=== PATIENT | female | born 1985 | race Caucasian/White ===

== ENCOUNTER 2016-04-24 12:51 | Outpatient (CLI) | payer MEDICAID ==
--- NOTE | 2016-04-24 13:37 | Non Stress Test Report ---
Non Stress Test Datetime Report Generated by CPN: 04/24/2016 13:36 DEMOGRAPHIC EGA NST: 34.4 INDICATION Indication for Study: Diabetes Mellitus Indication for Study (NST) Other: GDM MONITORING Monitor Explained: Monitor Explained; Test Explained; Patient Verbalized Understanding Time on Monitor: 04/24/2016 13:00 Time off Monitor: 04/24/2016 13:35 NST Duration: 35 NST INTERVENTIONS NST Interventions: PO Hydration; Reposition Patient Physician Notified NST: A. Emmel CNM BABY A: [id number] BABY A Movement : Present Contraction Frequency : rare FHR Baseline : 120 Accelerations : 15X15 Decelerations : None Variability : Moderate 6-25bpm NST Review: Meets Criteria for Reactive NST NST Review and Verified By : Stormy Jung RN NST Results: Reactive NST REPORT Report Trigger: Send Report
== END 2016-04-24 13:35 | disposition home or self-care (01) ==
LOC: LC 12:51
PROVIDERS: ATTEND Obstetrics & Gynecology
PROC: 4A1HXCZ Monitoring of Products of Conception, Cardiac Rate, External Approach (ICD-10-PCS; principal; 2016-04-24)
DX: O24.419 Gestational diabetes mellitus in pregnancy, unspecified control (principal); Z3A.34 34 weeks gestation of pregnancy
CPT/HCPCS: 59025

== ENCOUNTER 2016-05-26 07:29 | Inpatient (IN) | payer MEDICAID ==
[2016-05-26] MEDS ORDERED: RINGERS SOLUTION,LACTATED 1,000 ML IV PRN (07:57)
[2016-05-26] MEDS ORDERED: OXYTOCIN/NORMAL SALINE 1,000 ML IV PRN (07:57)
[2016-05-26] MEDS ORDERED: RINGERS SOLUTION,LACTATED 300 ML IV ONE (07:57)
--- NOTE | 2016-05-26 08:00 | L&D Flow Sheet ---
LD Flowsheet Datetime Report Generated by CPN: 05/26/2016 08:00 Datetime: 05/26/2016 07:48 Patient Care Procedures: Consents Signed (Cecilia Talib, RN) Datetime: 05/26/2016 07:47 Vital Signs NBP Sys/Justina/Mean (mmHg): 125 (QS system process) : 76 (QS system process) : 94 (QS system process) Pulse: 96 (QS system process) Uterine Activity Monitor Interventions for UA: [place] Adjusted (Ceiclia Talib, RN) Datetime: 05/26/2016 07:45 Patient Position/Activity: Right Tilt; Low Fowlers (Cecilia Mayers RN)
[2016-05-26 08:29] LABS: APPEARANCE,URINE SLIGHTLY-CLOUDY; BILIRUBIN,URINE NEGATIVE (NEGATIVE); GLUCOSE, URINE NEGATIVE (NEGATIVE); KETONES,URINE NEGATIVE (NEGATIVE); LEUKOCYTE ESTERASE,URINE NEGATIVE (NEGATIVE); NITRITE,URINE NEGATIVE (NEGATIVE); PROTEIN,URINE NEGATIVE (NEGATIVE); URINE SPECIFIC GRAVITY 1.002; UROBILINOGEN,URINE NEGATIVE mg/dL (<2.0)
[2016-05-26 08:42] LABS: URINE BARBITURATES SCREEN NEGATIVE; URINE METHADONE SCREEN NEGATIVE; URINE OPIATES LOW NEGATIVE; URINE PHENCYCLIDINE SCREEN NEGATIVE
[2016-05-26 09:00] LABS: ABSOLUTE LYMPHOCYTES (AUTO) 2.2 10^3/uL (0.5-4.7); ABSOLUTE MONOCYTES (AUTO) 0.7 10^3/uL (0.1-1.4); ABSOLUTE NEUT (AUTO) 7.2 10^3/uL (1.7-8.2); BASOPHILS % (AUTO) 0.4 % (0-2); EOSINOPHILS % (AUTO) 0.3 % (0-6); HEMATOCRIT 29.3 % (36.0-47.0); HEMOGLOBIN 9.7 g/dL (12.0-15.5); HGB HCT DIFFERENCE -0.2; LYMPHOCYTES % (AUTO) 21.2 % (13-45); MEAN CORPUSCULAR HEMOGLOBIN 27.1 pg (27.0-33.4); MEAN CORPUSCULAR HGB CONC 33.2 g/dL (32.0-36.0); MEAN CORPUSCULAR VOLUME 82 fl (80-97); MONOCYTES % (AUTO) 6.9 % (3-13); RED BLOOD COUNT 3.58 10^6/uL (3.72-5.28); RED CELL DISTRIBUTION WIDTH 14.5 % (11.5-14.0); SEGMENTED NEUTROPHILS % (AUTO) 71.2 % (42-78); WHITE BLOOD COUNT 10.2 10^3/uL (4.0-10.5)
[2016-05-26] MEDS ORDERED: VANCOMYCIN HCL INJ 1000 MG VIAL ONE (09:03)
[2016-05-26] MEDS ORDERED: OXYTOCIN/NORMAL SALINE 20 UNIT/1,000 ML RTUINJ ONE (09:37)
--- NOTE | 2016-05-26 10:00 | L&D Flow Sheet ---
LD Flowsheet Datetime Report Generated by CPN: 05/26/2016 10:00 Datetime: 05/26/2016 09:47 NBP Sys/Justina/Mean (mmHg): 125 (QS system process) : 71 (QS system process) : 93 (QS system process) Pulse: 86 (QS system process) LaborFlag: Antepartum (QS system process) Datetime: 05/26/2016 09:45 Pitocin (milliunit): Pitocin Started (milliunits) @ 2; Pitocin 20 Units in 1000ml NS (Cecilia Talib, RN) Datetime: 05/26/2016 09:32 Medication Comments: Vancomycin 1 gram IV per order (Cecilia Talib, RN) Datetime: 05/26/2016 09:17 NBP Sys/Justina/Mean (mmHg): 112 (QS system process) : 66 (QS system process) : 83 (QS system process) Pulse: 87 (QS system process) LaborFlag: Antepartum (QS system process) Datetime: 05/26/2016 09:02 NBP Sys/Justina/Mean (mmHg): 122 (QS system process) : 73 (QS system process) : 91 (QS system process) Pulse: 83 (QS system process) LaborFlag: Antepartum (QS system process) Datetime: 05/26/2016 09:00 Communication Comments: order received for Vancomycin 1G IV q12 hours until delivery (Cecilia Mayers, RN) Datetime: 05/26/2016 08:47 NBP Sys/Justina/Mean (mmHg): 115 (QS system process) : 76 (QS system process) : 92 (QS system process) Pulse: 87 (QS system process) LaborFlag: Antepartum (QS system process) Datetime: 05/26/2016 08:32 NBP Sys/Justina/Mean (mmHg): 121 (QS system process) : 82 (QS system process) : 94 (QS system process) Pulse: 81 (QS system process) LaborFlag: Antepartum (QS system process) Datetime: 05/26/2016 08:24 Dilatation (cm): 3.0 (Cecilia Mayers RN) Effacement (%): 60 (Cecilia Mayers RN) Station: -3 (Cecilia Mayers RN) Exam by: Butch Mayers RN (Cecilia Mayers RN) Vaginal Bleeding: None (Cecilia Mayers RN) Cervix, Consistency: Soft (Cecilia Mayesr RN) Cervix, Position: Midposition (Cecilia Mayers RN) Datetime: 05/26/2016 08:17 NBP Sys/Justina/Mean (mmHg): 124 (QS system process) : 80 (QS system process) : 96 (QS system process) Pulse: 86 (QS system process) LaborFlag: Antepartum (QS system process) Datetime: 05/26/2016 08:16 NBP Sys/Justina/Mean (mmHg): 126 (QS system process) : 81 (QS system process) : 98 (QS system process) Pulse: 90 (QS system process) LaborFlag: Antepartum (QS system process) Datetime: 05/26/2016 08:12 Monitor Interventions for UA: [place] Adjusted (Cecilia Mayers RN) Monitor Mode: External US (Cecilia Mayers RN) Pain Scale: 0 (Cecilia Mayers RN) Pain Presence: None/Denies (Cecilia Mayers RN) Pain Type: N/A (Cecilia Mayers RN) Pain Goal: 1 (Cecilia Mayers RN) Pain Relief Measures: Comfort Measures (Cecilia Mayers RN) Vaginal Bleeding: None (Cecilia Mayers RN) Level of Consciousness: Fully Conscious (Cecilia Mayers RN) DTR's/Clonus: DTRs 2+; No Clonus (Cecilia Mayers RN) Headache: Denies (Cecilia Talib, RN) Breath Sounds, Left: Clear and Equal (Cecilia Mayers RN) Breath Sounds, Right: Clear and Equal (Cecilia Mayers RN) Nausea/Vomiting: Hx of Nausea/Vomiting (Cecilia Mayers RN) RUQ Epigastric Pain: Denies (Cecilia Mayers RN) IV/Blood Work: IV Infusing per Order (Cecilia Mayers RN) Oxygen Method: Room Air (Cecilia Mayers, RN) Comfort Measures: Family Support (Cecilia Mayers RN) I/O Interventions: Clear Liquids Given (Cecilia Mayers RN) Provider Reviewed Strip: Yes (Cecilia Mayers RN) Instructional Method: Verbal (Cecilia Mayers RN) Plan of Care: Plan of Care Discussed (Cecilia Mayers RN) Unit Routine: [place] to Room; [place]; Bed; Visiting Policy; Waiting Areas (Cecilia Mayers RN) Labor/Induction: Labor Stages; Induction (Cecilia Mayers RN) Related: Common Discomforts of (Cecilia Mayers RN) LaborFlag: Antepartum (QS system process) Datetime: 05/26/2016 08:05 IV/Blood Work: IV Started; IV Bolus Started (Cecilia Mayers RN)
--- NOTE | 2016-05-26 12:00 | L&D Flow Sheet ---
LD Flowsheet Datetime Report Generated by CPN: 05/26/2016 12:00 Datetime: 05/26/2016 11:48 Communication Comments: Andrea Perla CNM notified of non-reactive strip, patient states she only ate "a handful of cheerios" this AM, blood sugar before breakfast was 66. Order received for popsicle (Cecilia Talib, RN) Datetime: 05/26/2016 11:47 NBP Sys/Justina/Mean (mmHg): 122 (QS system process) : 75 (QS system process) : 94 (QS system process) Pulse: 90 (QS system process) LaborFlag: Antepartum (QS system process) Datetime: 05/26/2016 11:45 Pitocin (milliunit): Pitocin Remains (milliunits) @ (Annotations: 10) (Cecilia Mayers, RN) Datetime: 05/26/2016 11:32 NBP Sys/Justina/Mean (mmHg): 123 (QS system process) : 77 (QS system process) : 94 (QS system process) Pulse: 89 (QS system process) Monitor Interventions for UA: [place] Adjusted (Cecilia Mayers RN) LaborFlag: Antepartum (QS system process) Datetime: 05/26/2016 11:31 Monitor Interventions for FHR: Ultrasound Adjusted (Cecilia Mayers RN) Patient Position/Activity: High Fowlers (Cecilia Mayers, RN) Datetime: 05/26/2016 11:30 Monitor Mode: External; Palpation (Cecilia Mayers RN) Frequency (min): irritability (Cecilia Mayers, ELIF) Quality: Mild (Cecilia Mayers, ELIF) Duration Criteria: Less than Two 120 Second Contractions (Cecilia Mayers, ELIF) Pattern: Normal: <= 5 Contractions in 10 Minutes (Cecilia Mayers, RN) Resting Tone (Palpate): Relaxed (Cecilia Mayers, RN) Monitor Mode: External US (Cecilia Mayers, RN) FHR Baseline Rate : 125 (Cecilia Mayers, RN) FHR Baseline Changes: No Baseline Change (Cecilia Mayers, RN) Variability: Moderate 6-25 bpm (Cecilia Mayers, RN) Accelerations: 15X15 (Cecilia Mayers, RN) Decelerations: None (Cecilia Mayers, RN) Pitocin (milliunit): Pitocin Increased to (milliunits) @ (Annotations: 10) (Cecilia Mayers, RN) Datetime: 05/26/2016 11:17 NBP Sys/Justina/Mean (mmHg): 126 (QS system process) : 74 (QS system process) : 96 (QS system process) Pulse: 82 (QS system process) LaborFlag: Antepartum (QS system process) Datetime: 05/26/2016 11:15 Monitor Mode: External; Palpation (Cecilia Mayers RN) Frequency (min): irritability (Cecilia Mayers RN) Quality: Mild (Cecilia Mayers RN) Duration Criteria: Less than Two 120 Second Contractions (Cecilia Mayers RN) Pattern: Normal: <= 5 Contractions in 10 Minutes (Cecilia Mayers RN) Resting Tone (Palpate): Relaxed (Cecilia Mayers, ELIF) Monitor Mode: External US (Cecilia Mayers RN) FHR Baseline Rate : 120 (Cecilia Mayers RN) FHR Baseline Changes: No Baseline Change (Cecilia Mayers RN) Variability: Moderate 6-25 bpm (Cecilia Mayers RN) Accelerations: 15X15 (Cecilia Mayers, RN) Decelerations: None (Cecilia Mayers, ELIF) Pitocin (milliunit): Pitocin Remains (milliunits) @ (Annotations: 8) (Cecilia Mayers RN) Datetime: 05/26/2016 11:02 NBP Sys/Justina/Mean (mmHg): 122 (QS system process) : 74 (QS system process) : 93 (QS system process) Pulse: 82 (QS system process) LaborFlag: Antepartum (QS system process) Datetime: 05/26/2016 11:00 Monitor Mode: External; Palpation (Cecilia Mayers RN) Resting Tone (Palpate): Relaxed (Cecilia Mayers RN) Contraction Comments: unable to determine due to patient position, RN at bedside adjusting monitor (Cecilia Mayers RN) Monitor Mode: External US (Cecilia Mayers RN) FHR Baseline Rate : 120 (Cecilia Mayers RN) FHR Baseline Changes: No Baseline Change (Cecilia Mayers RN) Variability: Moderate 6-25 bpm (Cecilia Mayers RN) Accelerations: None (Cecilia Mayers RN) Decelerations: None (Cecilia Mayers RN) Pitocin (milliunit): Pitocin Increased to (milliunits) @ 8 (Cecilia Mayers RN) Datetime: 05/26/2016 10:47 NBP Sys/Justina/Mean (mmHg): 118 (QS system process) : 66 (QS system process) : 87 (QS system process) Pulse: 78 (QS system process) LaborFlag: Antepartum (QS system process) Datetime: 05/26/2016 10:45 Monitor Mode: External; Palpation (Cecilia Mayers RN) Resting Tone (Palpate): Relaxed (Cecilia Mayers RN) Contraction Comments: unable to determine due to patient movement, RN at bedside adjusting monitor (Cecilia Mayers RN) Monitor Mode: External US (Cecilia Mayers RN) FHR Baseline Rate : 120 (Cecilia Mayers RN) FHR Baseline Changes: No Baseline Change (Cecilia Mayers RN) Variability: Moderate 6-25 bpm (Cecilia Mayers RN) Accelerations: 15X15 (Cecilia Mayers RN) Decelerations: None (Cecilia Mayers RN) Pitocin (milliunit): Pitocin Increased to (milliunits) @ (Annotations: 6) (Cecilia Mayers RN) Datetime: 05/26/2016 10:35 Monitor Interventions for FHR: Ultrasound Adjusted (Cecilia Mayres RN) Communication: RN at Bedside (Cecilia Mayers RN) Datetime: 05/26/2016 10:32 NBP Sys/Justina/Mean (mmHg): 131 (QS system process) : 80 (QS system process) : 100 (QS system process) Pulse: 86 (QS system process) LaborFlag: Antepartum (QS system process) Datetime: 05/26/2016 10:30 Monitor Mode: External; Palpation (Cecilia Mayers RN) Frequency (min): 2.5-3 (Cecilia Mayers RN) Quality: Mild (Cecilia Mayers RN) Duration (sec): 40-70 (Cecilia Mayers RN) Duration Criteria: Less than Two 120 Second Contractions (Cecilia Talib, RN) Pattern: Normal: <= 5 Contractions in 10 Minutes (Cecilia Mayers RN) Resting Tone (Palpate): Relaxed (Cecilia Mayers RN) Monitor Mode: External US (Ceciila Mayers RN) FHR Baseline Rate : 125 (Cecilia Mayers RN) FHR Baseline Changes: No Baseline Change (Cecilia Mayers RN) Variability: Moderate 6-25 bpm (Cecilia Mayers RN) Accelerations: 15X15 (Cecilia Mayers RN) Decelerations: None (Cecilia Mayers RN) Pitocin (milliunit): Pitocin Remains (milliunits) @ (Annotations: 4) (Cecilia Mayers RN) Datetime: 05/26/2016 10:17 NBP Sys/Justina/Mean (mmHg): 117 (QS system process) : 76 (QS system process) : 92 (QS system process) Pulse: 92 (QS system process) LaborFlag: Antepartum (QS system process) Datetime: 05/26/2016 10:15 Monitor Mode: External; Palpation (Cecilia Mayers RN) Frequency (min): 2-2.5 (Cecilia Mayers RN) Quality: Mild (Cecilia Mayers RN) Duration (sec): 40-60 (Cecilia Mayers RN) Duration Criteria: Less than Two 120 Second Contractions (Cecilia Mayers RN) Pattern: Normal: <= 5 Contractions in 10 Minutes (Cecilia Mayers RN) Resting Tone (Palpate): Relaxed (Cecilia Mayers RN) Monitor Mode: External US (Cecilia Mayers RN) FHR Baseline Rate : 125 (Cecilia Mayers RN) FHR Baseline Changes: No Baseline Change (Cecilia Mayers RN) Variability: Moderate 6-25 bpm (Cecilia Mayers RN) Accelerations: 15X15 (Cecilia Mayers RN) Decelerations: None (Cecilia Mayers RN) Pitocin (milliunit): Pitocin Remains (milliunits) @ (Annotations: 4) (Cecilia Mayers RN) Datetime: 05/26/2016 10:02 NBP Sys/Justina/Mean (mmHg): 122 (QS system process) : 71 (QS system process) : 91 (QS system process) Pulse: 83 (QS system process) LaborFlag: Antepartum (QS system process) Datetime: 05/26/2016 10:00 Monitor Mode: External; Palpation (Cecilia Mayers RN) Frequency (min): x1 (Cecilia Mayers RN) Quality: Mild (Cecilia Mayers RN) Duration (sec): 60 (Cecilia Mayers RN) Duration Criteria: Less than Two 120 Second Contractions (Cecilia Mayers RN) Pattern: Normal: <= 5 Contractions in 10 Minutes (Cecilia Mayers RN) Resting Tone (Palpate): Relaxed (Cecilia Mayers RN) Monitor Mode: External US (Cecilia Mayers RN) FHR Baseline Rate : 125 (Cecilia Mayers RN) FHR Baseline Changes: No Baseline Change (Cecilia Mayers RN) Variability: Moderate 6-25 bpm (Cecilia Mayers RN) Accelerations: 15X15 (Cecilia Mayers RN) Decelerations: None (Cecilia Mayers RN) Pitocin (milliunit): Pitocin Increased to (milliunits) @ 4 (Cecilia Mayers RN)
--- NOTE | 2016-05-26 12:10 | L&D Progress Notes ---
PROGRESS NOTES Datetime Report Generated by CPN: 05/26/2016 12:09 PROGRESS NOTE Procedures: Sterile Vag Exam Plan: Continue Present Management Vital Signs : Reviewed; Within Normal Limits Comment: SVE 2/60/ballotable-HIGH. Will delay trying to AROM. VAGINAL EXAM Dilatation: 2 Dilatation: 2 Effacement: 60 Effacement: 60 Station: -3 MEMBRANES Membranes: Intact Membranes: Intact FETUS A FHR - Baseline: 120 Monitoring: External US Variability: Moderate 6-25bpm FHR Category: Category I : 39.1 Presentation: Vertex SIGNATURE SIGNATURE: [id number] SIGNATURE: [id number] Assignment: Ella Zendejas MD Signature: with User ID: [email or web address] : with User ID: Jim : I personally evaluated and examined the patient in conjunction with the MLP and agree with the assessment, treatment plan and disposition. : I personally evaluated and examined the patient in conjunction with the MLP and agree with the assessment, treatment plan and disposition.
--- NOTE | 2016-05-26 14:01 | L&D Flow Sheet ---
LD Flowsheet Datetime Report Generated by CPN: 05/26/2016 14:00 Datetime: 05/26/2016 13:59 Patient Care Comments: rocking chair (Cecilia Talib, RN) Datetime: 05/26/2016 13:47 NBP Sys/Justina/Mean (mmHg): 129 (QS system process) : 86 (QS system process) : 102 (QS system process) Pulse: 99 (QS system process) LaborFlag: Antepartum (QS system process) Datetime: 05/26/2016 13:45 Monitor Mode: External; Palpation (Cecilia Mayers, ELIF) Frequency (min): 2-3.5 (Cecilia Mayers, ELIF) Quality: Mild (Cecilia Mayers, ELIF) Duration (sec): 40-70 (Cecilia Mayers, ELIF) Duration Criteria: Less than Two 120 Second Contractions (Cecilia Mayers, ELIF) Pattern: Normal: <= 5 Contractions in 10 Minutes (Cecilia Mayers, RN) Resting Tone (Palpate): Relaxed (Cecilia Mayers, ELIF) Monitor Mode: External US (Cecilia Mayers, ELIF) FHR Baseline Rate : 115 (Cecilia Mayers, RN) FHR Baseline Changes: No Baseline Change (Cecilia Mayers, ELIF) Variability: Moderate 6-25 bpm (Cecilia Mayers, RN) Accelerations: None (Cecilia Mayers, RN) Decelerations: None (Cecilia Mayers, ELIF) Pitocin (milliunit): Pitocin Remains (milliunits) @ (Annotations: 20) (Cecilia Mayers, ELIF) Datetime: 05/26/2016 13:32 NBP Sys/Justina/Mean (mmHg): 130 (QS system process) : 80 (QS system process) : 96 (QS system process) Pulse: 96 (QS system process) Temperature (F): 98.1 (Cecilia Mayers RN) Temperature (C): 36.7 (QS system process) LaborFlag: Antepartum (QS system process) Datetime: 05/26/2016 13:30 Monitor Mode: External; Palpation (Cecilia Mayers RN) Frequency (min): 2-3 (Cecilia Mayers RN) Quality: Mild (Cecilia Mayers RN) Duration (sec): 50-70 (Cecilia Mayers RN) Duration Criteria: Less than Two 120 Second Contractions (Cecilia Mayers RN) Pattern: Normal: <= 5 Contractions in 10 Minutes (Cecilia Mayers RN) Resting Tone (Palpate): Relaxed (Cecilia Mayers RN) Monitor Mode: External US (Cecilia Mayers RN) FHR Baseline Rate : 120 (Cecilia Mayers RN) FHR Baseline Changes: No Baseline Change (Cecilia Mayers RN) Variability: Moderate 6-25 bpm (Cecilia Mayers RN) Accelerations: 15X15 (Cecilia Mayers RN) Decelerations: None (Cecilia Mayers RN) Pitocin (milliunit): Pitocin Increased to (milliunits) @ 20 (Cecilia Mayers RN) Datetime: 05/26/2016 13:17 NBP Sys/Justina/Mean (mmHg): 130 (QS system process) : 78 (QS system process) : 98 (QS system process) Pulse: 90 (QS system process) LaborFlag: Antepartum (QS system process) Datetime: 05/26/2016 13:15 Monitor Mode: External; Palpation (Cecilia Mayers RN) Frequency (min): 3-3.5 (Cecilia Mayers RN) Quality: Mild (Cecilia Mayers RN) Duration (sec): 60-70 (Cecilia Mayers RN) Duration Criteria: Less than Two 120 Second Contractions (Cecilia Mayers RN) Pattern: Normal: <= 5 Contractions in 10 Minutes (Cecilia Mayers RN) Resting Tone (Palpate): Relaxed (Cecilia Mayers RN) Monitor Mode: External US (Cecilia Mayers RN) FHR Baseline Rate : 115 (Cecilia Mayers RN) FHR Baseline Changes: No Baseline Change (Cecilia Mayers RN) Variability: Moderate 6-25 bpm (Cecilia Mayers RN) Accelerations: 15X15 (Cecilia Mayers RN) Decelerations: None (Cecilia Mayers RN) Pitocin (milliunit): Pitocin Increased to (milliunits) @ (Annotations: 18) (Cecilia Mayers RN) Datetime: 05/26/2016 13:12 Monitor Interventions for UA: [place] Adjusted (Cecilia Talib, RN) Monitor Interventions for FHR: Ultrasound Adjusted (Cecilia Talib, RN) Datetime: 05/26/2016 13:11 Patient Position/Activity: Right Tilt; Semi-Fowlers (Cecilia Talib, RN) Datetime: 05/26/2016 13:07 I/O Interventions: Up to BR (Cecilia Talib, RN) Datetime: 05/26/2016 13:03 NBP Sys/Justina/Mean (mmHg): 122 (QS system process) : 81 (QS system process) : 98 (QS system process) Pulse: 86 (QS system process) LaborFlag: Antepartum (QS system process) Datetime: 05/26/2016 13:00 Monitor Mode: External; Palpation (Cecilia Mayers RN) Frequency (min): 2-3 (Cecilia Mayers RN) Quality: Mild (Cecilia Mayers RN) Duration (sec): 50-90 (Cecilia Mayers RN) Duration Criteria: Less than Two 120 Second Contractions (Cecilia Mayers RN) Pattern: Normal: <= 5 Contractions in 10 Minutes (Cecilia Mayers RN) Resting Tone (Palpate): Relaxed (Cecilia Mayers RN) Monitor Mode: External US (Cecilia Mayers RN) FHR Baseline Rate : 115 (Cecilia Mayers RN) FHR Baseline Changes: No Baseline Change (Cecilia Mayers RN) Variability: Moderate 6-25 bpm (Cecilia Mayers RN) Accelerations: 15X15 (Cecilia Mayers RN) Decelerations: None (Cecilia Mayers RN) Pitocin (milliunit): Pitocin Remains (milliunits) @ (Annotations: 16) (Cecilia Mayers RN) Datetime: 05/26/2016 12:48 NBP Sys/Justina/Mean (mmHg): 127 (QS system process) : 82 (QS system process) : 99 (QS system process) Pulse: 85 (QS system process) LaborFlag: Antepartum (QS system process) Datetime: 05/26/2016 12:45 Monitor Mode: External; Palpation (Cecilia Mayers RN) Frequency (min): 2.5-3.5 (Cecilia Mayers RN) Quality: Mild (Cecilia Mayers RN) Duration (sec): 70-110 (Cecilia Mayers RN) Duration Criteria: Less than Two 120 Second Contractions (Cecilia Mayers RN) Pattern: Normal: <= 5 Contractions in 10 Minutes (Cecilia Mayers RN) Resting Tone (Palpate): Relaxed (Cecilia Mayers RN) Monitor Mode: External US (Cecilia Mayers RN) FHR Baseline Rate : 120 (Cecilia Mayers RN) FHR Baseline Changes: No Baseline Change (Cecilia Mayers RN) Variability: Moderate 6-25 bpm (Cecilia Mayers RN) Accelerations: 15X15 (Cecilia Mayers RN) Decelerations: None (Cecilia Maeyrs RN) Pitocin (milliunit): Pitocin Increased to (milliunits) @ (Annotations: 16) (Cecilia Mayers RN) Datetime: 05/26/2016 12:33 NBP Sys/Justina/Mean (mmHg): 128 (QS system process) : 80 (QS system process) : 99 (QS system process) Pulse: 82 (QS system process) LaborFlag: Antepartum (QS system process) Datetime: 05/26/2016 12:30 Monitor Mode: External; Palpation (Cecilia Mayers RN) Frequency (min): 2.5-3 (Cecilia Mayers RN) Quality: Mild (Cecilia Mayers RN) Duration (sec): 70-90 (Cecilia Mayers RN) Duration Criteria: Less than Two 120 Second Contractions (Cecilia Mayers RN) Pattern: Normal: <= 5 Contractions in 10 Minutes (Cecilia Mayers RN) Resting Tone (Palpate): Relaxed (Cecilia Mayers RN) Monitor Mode: External US (Cecilia Mayers RN) FHR Baseline Rate : 120 (Cecilia Mayers RN) FHR Baseline Changes: No Baseline Change (Cecilia Mayers RN) Variability: Moderate 6-25 bpm (Cecilia Mayers RN) Accelerations: 15X15 (Cecilia Mayers RN) Decelerations: None (Cecilia Mayers RN) Pitocin (milliunit): Pitocin Remains (milliunits) @ (Annotations: 14) (Cecilia Mayers RN) Datetime: 05/26/2016 12:17 NBP Sys/Justina/Mean (mmHg): 132 (QS system process) : 75 (QS system process) : 97 (QS system process) Pulse: 87 (QS system process) LaborFlag: Antepartum (QS system process) Datetime: 05/26/2016 12:15 Monitor Mode: External; Palpation (Cecilia Mayers RN) Frequency (min): 2-3 (Cecilia Mayers RN) Quality: Mild (Cecilia Mayers RN) Duration (sec): 40-70 (Cecilia Mayers RN) Duration Criteria: Less than Two 120 Second Contractions (Cecilia Mayers RN) Pattern: Normal: <= 5 Contractions in 10 Minutes (Cecilia Mayers RN) Resting Tone (Palpate): Relaxed (Cecilia Mayers RN) Monitor Mode: External US (Cecilia Mayers RN) FHR Baseline Rate : 120 (Cecilia Mayers RN) FHR Baseline Changes: No Baseline Change (Cecilia Mayers RN) Variability: Moderate 6-25 bpm (Cecilia Mayers RN) Accelerations: 15X15 (Cecilia Mayers RN) Decelerations: None (Cecilia Mayers RN) Pitocin (milliunit): Pitocin Increased to (milliunits) @ (Annotations: 14) (Cecilia Mayers RN) Datetime: 05/26/2016 12:05 Dilatation (cm): 2.0 (Cecilia Mayers RN) Effacement (%): 60 (Cecilia Mayers RN) Exam by: Butch Mayers RN (Cecilia Mayers RN) Vaginal Exam Comments: ballotable (Cecilia Mayers RN) Datetime: 05/26/2016 12:02 NBP Sys/Justina/Mean (mmHg): 124 (QS system process) : 74 (QS system process) : 94 (QS system process) Pulse: 85 (QS system process) LaborFlag: Antepartum (QS system process) Datetime: 05/26/2016 12:00 Monitor Mode: External; Palpation (Cecilia Mayers RN) Frequency (min): 2.5-6 (Cecilia Mayers RN) Quality: Mild (Cecilia Mayers RN) Duration (sec): 40-60 (Cecilia Mayers RN) Duration Criteria: Less than Two 120 Second Contractions (Cecilia Mayers RN) Pattern: Normal: <= 5 Contractions in 10 Minutes (Cecilia Mayers RN) Resting Tone (Palpate): Relaxed (Cecilia Mayers RN) Monitor Mode: External US (Cecilia Mayers RN) FHR Baseline Rate : 120 (Cecilia Mayers RN) FHR Baseline Changes: No Baseline Change (Cecilia Mayers RN) Variability: Moderate 6-25 bpm (Cecilia Mayers RN) Accelerations: 15X15 (Cecilia Mayers RN) Decelerations: None (Cecilia Mayers RN) Pitocin (milliunit): Pitocin Increased to (milliunits) @ (Annotations: 12) (Cecilia Mayers RN)
--- NOTE | 2016-05-26 16:01 | L&D Flow Sheet ---
LD Flowsheet Datetime Report Generated by CPN: 05/26/2016 16:00 Datetime: 05/26/2016 15:48 NBP Sys/Justina/Mean (mmHg): 123 (QS system process) : 72 (QS system process) : 91 (QS system process) Pulse: 93 (QS system process) LaborFlag: Antepartum (QS system process) Datetime: 05/26/2016 15:45 Monitor Mode: External; Palpation (Cecilia Mayers RN) Frequency (min): 2-3 (Cecilia Mayers RN) Quality: Mild (Cecilia Mayers RN) Duration (sec): 50-60 (Cecilia Mayers RN) Duration Criteria: Less than Two 120 Second Contractions (Cecilia Mayers RN) Pattern: Normal: <= 5 Contractions in 10 Minutes (Cecilia Mayers RN) Resting Tone (Palpate): Relaxed (Cecilia Mayers RN) Monitor Mode: External US (Cecilia Mayers RN) FHR Baseline Rate : 115 (Cecilia Mayers RN) FHR Baseline Changes: No Baseline Change (Cecilia Mayers RN) Variability: Moderate 6-25 bpm (Cecilia Mayers RN) Accelerations: 15X15 (Cecilia Mayers RN) Decelerations: None (Cecilia Mayers RN) Pitocin (milliunit): Pitocin Remains (milliunits) @ (Annotations: 20) (Cecilia Mayers RN) Datetime: 05/26/2016 15:32 NBP Sys/Justina/Mean (mmHg): 118 (QS system process) : 74 (QS system process) : 91 (QS system process) Pulse: 93 (QS system process) LaborFlag: Antepartum (QS system process) Datetime: 05/26/2016 15:30 Monitor Mode: External; Palpation (Cecilia Mayers RN) Frequency (min): 2-3 (Cecilia Mayers RN) Quality: Mild (Cecilia Mayers RN) Duration (sec): 40-50 (Cecilia Mayers RN) Duration Criteria: Less than Two 120 Second Contractions (Cecilia Mayers RN) Pattern: Normal: <= 5 Contractions in 10 Minutes (Cecilia Mayers RN) Resting Tone (Palpate): Relaxed (Cecilia Mayers RN) Monitor Mode: External US (Cecilia Mayers RN) FHR Baseline Rate : 115 (Cecilia Mayers RN) FHR Baseline Changes: No Baseline Change (Cecilia Mayers RN) Variability: Moderate 6-25 bpm (Cecilia Mayers RN) Accelerations: 15X15 (Cecilia Mayers RN) Decelerations: None (Cecilia Mayers RN) Pitocin (milliunit): Pitocin Remains (milliunits) @ (Annotations: 20) (Cecilia Mayers RN) Datetime: 05/26/2016 15:18 NBP Sys/Justina/Mean (mmHg): 119 (QS system process) : 76 (QS system process) : 92 (QS system process) Pulse: 90 (QS system process) LaborFlag: Antepartum (QS system process) Datetime: 05/26/2016 15:15 Monitor Mode: External; Palpation (Cecilia Mayers, ELIF) Frequency (min): 2-3 (Cecilia Mayers, ELIF) Quality: Mild (Cecilia Mayers, ELIF) Duration (sec): 60-80 (Cecilia Mayers, ELIF) Duration Criteria: Less than Two 120 Second Contractions (Cecilia Mayers, ELIF) Pattern: Normal: <= 5 Contractions in 10 Minutes (Cecilia Mayers, RN) Resting Tone (Palpate): Relaxed (Cecilia Mayers, ELIF) Monitor Mode: External US (Cecilia Mayers RN) FHR Baseline Rate : 120 (Cecilia Mayers RN) FHR Baseline Changes: No Baseline Change (Cecilia Mayers, ELIF) Variability: Moderate 6-25 bpm (Cecilia Mayers, RN) Accelerations: 15X15 (Cecilia Mayers, ELIF) Decelerations: None (Cecilia Mayers, ELIF) Pitocin (milliunit): Pitocin Remains (milliunits) @ (Annotations: 20) (Cecilia Mayers, ELIF) Datetime: 05/26/2016 15:02 NBP Sys/Justina/Mean (mmHg): 125 (QS system process) : 82 (QS system process) : 96 (QS system process) Pulse: 91 (QS system process) LaborFlag: Antepartum (QS system process) Datetime: 05/26/2016 15:00 Monitor Mode: External; Palpation (Cecilia Mayers RN) Frequency (min): 2-3 (Cecilia Mayers RN) Quality: Mild (Cecilia Mayers, ELIF) Duration (sec): 50-70 (Cecilia Mayers, ELIF) Duration Criteria: Less than Two 120 Second Contractions (Cecilia Mayers RN) Pattern: Normal: <= 5 Contractions in 10 Minutes (Cecilia Mayers RN) Resting Tone (Palpate): Relaxed (Cecilia Mayers, ELIF) Monitor Mode: External US (Cecilia Mayers RN) FHR Baseline Rate : 125 (Cecilia Mayers RN) FHR Baseline Changes: No Baseline Change (Cecilia Mayers RN) Variability: Moderate 6-25 bpm (Cecilia Mayers RN) Accelerations: 15X15 (Cecilia Mayers, ELIF) Decelerations: None (Cecilia Mayers, ELIF) Pitocin (milliunit): Pitocin Remains (milliunits) @ (Annotations: 20) (Cecilia Mayers, ELIF) Datetime: 05/26/2016 14:47 NBP Sys/Justina/Mean (mmHg): 129 (QS system process) : 82 (QS system process) : 97 (QS system process) Pulse: 97 (QS system process) LaborFlag: Antepartum (QS system process) Datetime: 05/26/2016 14:45 Monitor Mode: External; Palpation (Cecilia Mayers RN) Frequency (min): 2-3.5 (Cecilia Mayers RN) Quality: Mild (Cecilia Mayers, RN) Duration (sec): 40-60 (Cecilia Mayers, RN) Duration Criteria: Less than Two 120 Second Contractions (Cecilia Mayers, ELIF) Pattern: Normal: <= 5 Contractions in 10 Minutes (Cecilia Mayers RN) Resting Tone (Palpate): Relaxed (Cecilia Mayers, RN) Monitor Mode: External US (Cecilia Mayers, RN) FHR Baseline Rate : 115 (Cecilia Mayers, RN) FHR Baseline Changes: No Baseline Change (Cecilia Mayers, ELIF) Variability: Moderate 6-25 bpm (Cecilia Mayers, RN) Accelerations: 15X15 (Cecilia Mayers, RN) Decelerations: None (Cecilia Mayers, RN) Pitocin (milliunit): Pitocin Remains (milliunits) @ (Annotations: 20) (Cecilia Mayers RN) Datetime: 05/26/2016 14:32 NBP Sys/Justina/Mean (mmHg): 116 (QS system process) : 77 (QS system process) : 93 (QS system process) Pulse: 91 (QS system process) LaborFlag: Antepartum (QS system process) Datetime: 05/26/2016 14:30 Monitor Mode: External; Palpation (Cecilia Mayers RN) Frequency (min): 2.5-3.5 (Cecilia Mayers RN) Quality: Mild (Cecilia Mayers RN) Duration (sec): 50-60 (Cecilia Mayers RN) Duration Criteria: Less than Two 120 Second Contractions (Cecilia Mayers RN) Pattern: Normal: <= 5 Contractions in 10 Minutes (Cecilia Mayers RN) Resting Tone (Palpate): Relaxed (Cecilia Mayers RN) Monitor Mode: External US (Cecilia Mayers RN) FHR Baseline Rate : 120 (Cecilia Mayers RN) FHR Baseline Changes: No Baseline Change (Cecilia Mayers RN) Variability: Moderate 6-25 bpm (Cecilia Mayers RN) Accelerations: 15X15 (Cecilia Mayers RN) Decelerations: None (Cecilia Mayers RN) Pitocin (milliunit): Pitocin Remains (milliunits) @ (Annotations: 20) (Cecilia Mayers RN) Datetime: 05/26/2016 14:17 NBP Sys/Justina/Mean (mmHg): 126 (QS system process) : 81 (QS system process) : 98 (QS system process) Pulse: 86 (QS system process) LaborFlag: Antepartum (QS system process) Datetime: 05/26/2016 14:15 Monitor Mode: External; Palpation (Cecilia Mayers RN) Frequency (min): 2-3.5 (Cecilia Mayers RN) Quality: Mild (Cecilia Mayers RN) Duration (sec): 50-70 (Cecilia Mayers RN) Duration Criteria: Less than Two 120 Second Contractions (Cecilia Mayers RN) Pattern: Normal: <= 5 Contractions in 10 Minutes (Cecilia Mayers RN) Resting Tone (Palpate): Relaxed (Cecilia Mayers RN) Monitor Mode: External US (Cecilia Mayers RN) FHR Baseline Rate : 115 (Cecilia Mayers RN) FHR Baseline Changes: No Baseline Change (Cecilia Mayers RN) Variability: Moderate 6-25 bpm (Cecilia Mayers RN) Accelerations: 15X15 (Cecilia Mayers RN) Decelerations: None (Cecilia Mayers RN) Pitocin (milliunit): Pitocin Remains (milliunits) @ (Annotations: 20) (Cecilia Mayers RN) Datetime: 05/26/2016 14:02 NBP Sys/Justina/Mean (mmHg): 118 (QS system process) : 73 (QS system process) : 92 (QS system process) Pulse: 88 (QS system process) LaborFlag: Antepartum (QS system process) Datetime: 05/26/2016 14:00 Monitor Mode: External; Palpation (Cecilia Mayers RN) Frequency (min): 2-3 (Cecilia Mayers RN) Quality: Mild (Cecilia Mayers RN) Duration (sec): 60-80 (Cecilia Mayers RN) Duration Criteria: Less than Two 120 Second Contractions (Cecilia Mayers RN) Pattern: Normal: <= 5 Contractions in 10 Minutes (Cecilia Mayers RN) Resting Tone (Palpate): Relaxed (Cecilia Mayers RN) Monitor Mode: External US (Cecilia Mayers RN) FHR Baseline Rate : 115 (Cecilia Mayers RN) FHR Baseline Changes: No Baseline Change (Cecilia Mayers RN) Variability: Moderate 6-25 bpm (Cecilia Mayers RN) Accelerations: 15X15 (Cecilia Mayers RN) Decelerations: None (Cecilia Mayers RN) Pitocin (milliunit): Pitocin Remains (milliunits) @ (Annotations: 20) (Cecilia Mayers RN)
--- NOTE | 2016-05-26 16:11 | L&D Progress Notes ---
PROGRESS NOTES Datetime Report Generated by CPN: 05/26/2016 16:10 PROGRESS NOTE Impression: Reassuring Heart Rate Procedures: Sterile Vag Exam Plan: Continue Present Management Comment: SVE -no change. Attempted AROM-unable to rupture. Wll continue Pitocin at this time. FETUS C SIGNATURE: [id number] Assignment: Ella Zendejas MD Signature: with User ID: PJones : with User ID: Jim : I personally evaluated and examined the patient in conjunction with the MLP and agree with the assessment, treatment plan and disposition.
--- NOTE | 2016-05-26 18:00 | L&D Flow Sheet ---
LD Flowsheet Datetime Report Generated by CPN: 05/26/2016 18:00 Datetime: 05/26/2016 17:48 NBP Sys/Justina/Mean (mmHg): 139 (QS system process) : 78 (QS system process) : 101 (QS system process) Pulse: 91 (QS system process) LaborFlag: Antepartum (QS system process) Datetime: 05/26/2016 17:33 NBP Sys/Justina/Mean (mmHg): 121 (QS system process) : 82 (QS system process) : 98 (QS system process) Pulse: 91 (QS system process) LaborFlag: Antepartum (QS system process) Datetime: 05/26/2016 17:30 Monitor Mode: External; Palpation (Cecilia Mayers RN) Frequency (min): 1.5-2 (Cecilia Mayers RN) Quality: Mild (Cecilia Mayers RN) Duration (sec): 50-70 (Cecilia Mayers RN) Duration Criteria: Less than Two 120 Second Contractions (Cecilia Mayers RN) Pattern: Normal: <= 5 Contractions in 10 Minutes (Cecilia Mayers RN) Resting Tone (Palpate): Relaxed (Cecilia Mayres, ELIF) Monitor Mode: External US (Cecilia Mayers RN) FHR Baseline Rate : 120 (Cecilia Mayers RN) FHR Baseline Changes: No Baseline Change (Cecilia Mayers RN) Variability: Moderate 6-25 bpm (Cecilia Mayers RN) Accelerations: 15X15 (Cecilia Mayers RN) Decelerations: None (Cecilia Mayers RN) Pitocin (milliunit): Pitocin Remains (milliunits) @ (Annotations: 20) (Cecilia Mayers RN) Datetime: 05/26/2016 17:17 NBP Sys/Justina/Mean (mmHg): 134 (QS system process) : 75 (QS system process) : 97 (QS system process) Pulse: 89 (QS system process) LaborFlag: Antepartum (QS system process) Datetime: 05/26/2016 17:15 Monitor Mode: External; Palpation (Cecilia Mayers RN) Frequency (min): 2-3 (Cecilia Mayers RN) Quality: Mild (Cecilia Mayers RN) Duration (sec): 50-60 (Cecilia Mayers RN) Duration Criteria: Less than Two 120 Second Contractions (Cecilia Mayers RN) Pattern: Normal: <= 5 Contractions in 10 Minutes (Cecilia Mayers RN) Resting Tone (Palpate): Relaxed (Cecilia Mayers RN) Monitor Mode: External US (Cecilia Mayers RN) FHR Baseline Rate : 120 (Cecilia Mayers RN) FHR Baseline Changes: No Baseline Change (Cecilia Mayesr RN) Variability: Moderate 6-25 bpm (Cecilia Mayers RN) Accelerations: 15X15 (Cecilia Mayers RN) Decelerations: None (Cecilia Mayers RN) Pitocin (milliunit): Pitocin Remains (milliunits) @ (Annotations: 20) (Cecilia Mayers RN) Datetime: 05/26/2016 17:02 NBP Sys/Justina/Mean (mmHg): 128 (QS system process) : 75 (QS system process) : 95 (QS system process) Pulse: 91 (QS system process) LaborFlag: Antepartum (QS system process) Datetime: 05/26/2016 17:00 Monitor Mode: External; Palpation (Cecilia Mayers RN) Frequency (min): 1.5-3 (Cecilia Mayers RN) Quality: Mild (Cecilia Mayers RN) Duration (sec): 40-70 (Cecilia Mayers RN) Duration Criteria: Less than Two 120 Second Contractions (Cecilia Mayers RN) Pattern: Normal: <= 5 Contractions in 10 Minutes (Cecilia Mayers RN) Resting Tone (Palpate): Relaxed (Cecilia Mayers RN) Monitor Mode: External US (Cecilia Mayers RN) FHR Baseline Rate : 115 (Cecilia Mayers RN) FHR Baseline Changes: No Baseline Change (Cecilia Mayers RN) Variability: Moderate 6-25 bpm (Cecilia Mayers RN) Accelerations: 15X15 (Cecilia Mayers RN) Decelerations: None (Cecilia Mayers RN) Pitocin (milliunit): Pitocin Remains (milliunits) @ (Annotations: 20) (Cecilia Mayers RN) Datetime: 05/26/2016 16:47 NBP Sys/Justina/Mean (mmHg): 133 (QS system process) : 82 (QS system process) : 100 (QS system process) Pulse: 85 (QS system process) LaborFlag: Antepartum (QS system process) Datetime: 05/26/2016 16:45 Monitor Mode: External; Palpation (Cecilia Mayers RN) Frequency (min): 2-3 (Cecilia Mayers RN) Quality: Mild (Cecilia Mayers RN) Duration (sec): 50-70 (Cecilia Mayers RN) Duration Criteria: Less than Two 120 Second Contractions (Cecilia Mayers RN) Pattern: Normal: <= 5 Contractions in 10 Minutes (Cecilia Mayers RN) Resting Tone (Palpate): Relaxed (Cecilia Mayers RN) Monitor Mode: External US (Cecilia Mayers RN) FHR Baseline Rate : 115 (Cecilia Mayers RN) FHR Baseline Changes: No Baseline Change (Cecilia Mayers RN) Variability: Moderate 6-25 bpm (Cecilia Mayers RN) Accelerations: 15X15 (Cecilia Mayers RN) Decelerations: None (Cecilia Mayers RN) Pitocin (milliunit): Pitocin Remains (milliunits) @ (Annotations: 20) (Cecilia Mayers RN) Datetime: 05/26/2016 16:32 NBP Sys/Justina/Mean (mmHg): 127 (QS system process) : 73 (QS system process) : 95 (QS system process) Pulse: 88 (QS system process) LaborFlag: Antepartum (QS system process) Datetime: 05/26/2016 16:30 Monitor Mode: External; Palpation (Cecilia Mayers RN) Frequency (min): 2-2.5 (Cecilia Mayers RN) Quality: Mild (Cecilia Mayers RN) Duration (sec): 50-70 (Cecilia Mayers RN) Duration Criteria: Less than Two 120 Second Contractions (Cecilia Mayers RN) Pattern: Normal: <= 5 Contractions in 10 Minutes (Cecilia Mayers RN) Resting Tone (Palpate): Relaxed (Cecilia Mayers RN) Monitor Mode: External US (Cecilia Mayers RN) FHR Baseline Rate : 120 (Cecilia Mayers RN) FHR Baseline Changes: No Baseline Change (Cecilia Mayers RN) Variability: Moderate 6-25 bpm (Cecilia Talib, RN) Accelerations: 15X15 (Cecilia Mayers, RN) Decelerations: None (Cecilia Mayers, RN) Pitocin (milliunit): Pitocin Remains (milliunits) @ (Annotations: 20) (Cecilia Mayers, RN) Datetime: 05/26/2016 16:23 Patient Care Comments: rocking chair (Cecilia Mayers, RN) Datetime: 05/26/2016 16:19 I/O Interventions: Up to BR (Cecilia Mayers, RN) Datetime: 05/26/2016 16:18 NBP Sys/Justina/Mean (mmHg): 124 (QS system process) : 68 (QS system process) : 91 (QS system process) Pulse: 90 (QS system process) LaborFlag: Antepartum (QS system process) Datetime: 05/26/2016 16:15 Monitor Mode: External; Palpation (Cecilia Mayers RN) Frequency (min): 2 (Cecilia Mayers RN) Quality: Mild (Cecilia Mayers RN) Duration (sec): 60-70 (Cecilia Mayers RN) Duration Criteria: Less than Two 120 Second Contractions (Cecilia Mayers RN) Pattern: Normal: <= 5 Contractions in 10 Minutes (Cecilia Mayers RN) Resting Tone (Palpate): Relaxed (Cecilia Mayers RN) Monitor Mode: External US (Cecilia Mayers RN) FHR Baseline Rate : 120 (Cecilia Mayers RN) FHR Baseline Changes: No Baseline Change (Cecilia Mayers RN) Variability: Moderate 6-25 bpm (Cecilia Mayers RN) Accelerations: 15X15 (Cecilia Mayers RN) Decelerations: None (Cecilia Mayers RN) Pitocin (milliunit): Pitocin Remains (milliunits) @ (Annotations: 20) (Cecilia Mayers RN) Datetime: 05/26/2016 16:03 Communication Comments: Andrea PerlaTANESHA at bedside discussing POC with patient. Order received to maintain Pitocin at 20 milliunits/,min and for patient to be up out of bed (Cecilia Mayers RN) Datetime: 05/26/2016 16:02 Dilatation (cm): 2.0 (Cecilia Mayers RN) Effacement (%): 60 (Cecilia Mayers RN) Exam by: Andrea Perla CNM (Cecilia Mayers RN) Vaginal Exam Comments: bollatable (Cecilia Mayers RN) Datetime: 05/26/2016 16:00 Monitor Mode: External; Palpation (Cecilia Mayers RN) Frequency (min): 2-2.5 (Cecilia Mayers RN) Quality: Mild (Cecilia Mayers RN) Duration (sec): 50-60 (Cecilia Mayers RN) Duration Criteria: Less than Two 120 Second Contractions (Cecilia Mayers RN) Pattern: Normal: <= 5 Contractions in 10 Minutes (Cecilia Mayers RN) Resting Tone (Palpate): Relaxed (Cecilia Mayers RN) Monitor Mode: External US (Cecilia Mayers RN) FHR Baseline Rate : 115 (Cecilia Mayers RN) FHR Baseline Changes: No Baseline Change (Cecilia Mayers RN) Variability: Moderate 6-25 bpm (Cecilia Mayers RN) Accelerations: 15X15 (Cecilia Mayers RN) Decelerations: None (Cecilia Mayers RN) Pitocin (milliunit): Pitocin Remains (milliunits) @ (Annotations: 20) (Cecilia Mayers RN)
--- NOTE | 2016-05-26 20:00 | L&D Flow Sheet ---
LD Flowsheet Datetime Report Generated by CPN: 05/26/2016 20:00 Datetime: 05/26/2016 18:48 Communication Comments: monitors removed for patient to eat and ambulate (Cecilia Talib, RN) Datetime: 05/26/2016 18:47 NBP Sys/Justina/Mean (mmHg): 127 (QS system process) : 76 (QS system process) : 96 (QS system process) Pulse: 91 (QS system process) LaborFlag: Antepartum (QS system process) Datetime: 05/26/2016 18:45 Monitor Mode: External; Palpation (Cecilia Mayers, ELIF) Frequency (min): 4-5 (Cecilia Mayers, ELIF) Quality: Mild (Cecilia Mayers, RN) Duration (sec): 60-100 (Cecilia Mayers, RN) Duration Criteria: Less than Two 120 Second Contractions (Cecilia Mayers, RN) Pattern: Normal: <= 5 Contractions in 10 Minutes (Cecilia Mayers, RN) Resting Tone (Palpate): Relaxed (Cecilia Mayers, RN) Monitor Mode: External US (Cecilia Mayers, RN) FHR Baseline Rate : 120 (Cecilia Mayers, RN) FHR Baseline Changes: No Baseline Change (Cecilia Mayers, RN) Variability: Moderate 6-25 bpm (Cecilia Mayers, RN) Accelerations: 15X15 (Cecilia Mayers, RN) Decelerations: None (Cecilia Mayers, RN) Datetime: 05/26/2016 18:32 NBP Sys/Justina/Mean (mmHg): 129 (QS system process) : 87 (QS system process) : 104 (QS system process) Pulse: 97 (QS system process) LaborFlag: Antepartum (QS system process) Datetime: 05/26/2016 18:30 Monitor Mode: External; Palpation (Cecilia Mayers RN) Frequency (min): 2.5-4 (Cecilia Mayers, RN) Quality: Mild (Cecilia Mayers, RN) Duration (sec): 50-60 (Cecilia Mayers, RN) Duration Criteria: Less than Two 120 Second Contractions (Cecilia Mayers, RN) Pattern: Normal: <= 5 Contractions in 10 Minutes (Cecilia Mayers, RN) Resting Tone (Palpate): Relaxed (Cecilia Mayers, RN) Monitor Mode: External US (Cecilia Mayers, RN) FHR Baseline Rate : 115 (Cecilia Mayers, RN) FHR Baseline Changes: No Baseline Change (Cecilia Mayers, RN) Variability: Moderate 6-25 bpm (Cecilia Mayers, RN) Accelerations: None (Cecilia Mayers, RN) Decelerations: None (Cecilia Mayers, RN) Datetime: 05/26/2016 18:26 Monitor Interventions for FHR: Ultrasound Adjusted (Cecilia Mayers RN) Datetime: 05/26/2016 18:23 Monitor Interventions for FHR: Ultrasound Adjusted (Cecilia Mayers, RN) Datetime: 05/26/2016 18:17 NBP Sys/Justina/Mean (mmHg): 125 (QS system process) : 81 (QS system process) : 99 (QS system process) Pulse: 96 (QS system process) LaborFlag: Antepartum (QS system process) Datetime: 05/26/2016 18:15 Monitor Mode: External; Palpation (Cecilia Mayers RN) Frequency (min): 2.5-3 (Cecilia Mayers RN) Quality: Mild (Cecilia Mayers RN) Duration (sec): 40-60 (Cecilia Mayers RN) Duration Criteria: Less than Two 120 Second Contractions (Cecilia Mayers RN) Pattern: Normal: <= 5 Contractions in 10 Minutes (Cecilia Mayers RN) Resting Tone (Palpate): Relaxed (Cecilia Mayers RN) Monitor Mode: External US (Cecilia Mayers RN) FHR Baseline Rate : 115 (Cecilia Mayers RN) FHR Baseline Changes: No Baseline Change (Cecilia Mayers RN) Variability: Moderate 6-25 bpm (Cecilia Mayers RN) Accelerations: 15X15 (Cecilia Mayers RN) Decelerations: None (Cecilia Mayers RN) Datetime: 05/26/2016 18:02 NBP Sys/Justina/Mean (mmHg): 132 (QS system process) : 92 (QS system process) : 107 (QS system process) Pulse: 96 (QS system process) LaborFlag: Antepartum (QS system process) Datetime: 05/26/2016 18:00 Monitor Mode: External; Palpation (Cecilia Mayers RN) Frequency (min): 2 (Cecilia Mayers RN) Quality: Mild (Cecilia Mayers RN) Duration (sec): 50-60 (Cecilia Mayers RN) Duration Criteria: Less than Two 120 Second Contractions (Cecilia Mayers RN) Pattern: Normal: <= 5 Contractions in 10 Minutes (Cecilia Mayers RN) Resting Tone (Palpate): Relaxed (Cecilia Mayers RN) Monitor Mode: External US (Cecilia Mayers RN) FHR Baseline Rate : 120 (Cecilia Mayers RN) FHR Baseline Changes: No Baseline Change (Cecilia Mayers RN) Variability: Moderate 6-25 bpm (Cecilia Mayers RN) Accelerations: 15X15 (Cecilia Mayers RN) Decelerations: None (Cecilia Mayers RN) Pitocin (milliunit): Pitocin Discontinued (Cecilia Mayers RN)
[2016-05-26] MEDS ORDERED: DINOPROSTONE 10 MG VAGINAL INSERT.SR PV PRN (20:47)
[2016-05-26] MEDS ORDERED: DINOPROSTONE 10 MG VAGINAL INSERT.SR ONE (20:54)
[2016-05-26] MEDS ORDERED: ACETAMINOPHEN 325 MG TABLET ONE (21:17)
[2016-05-26] MEDS ORDERED: ACETAMINOPHEN 325 MG TABLET PO PRN (21:23)
[2016-05-26] MEDS ORDERED: MAG HYDROX/AL HYDROX/SIMETH SUSP 30 ML UDCUP PO PRN (21:23)
[2016-05-26] MEDS ORDERED: ZOLPIDEM TARTRATE 5 MG TABLET PO SCH (22:00)
[2016-05-26] MEDS ORDERED: VANCOMYCIN HCL INJ 1000 MG VIAL IV SCH (22:00)
--- NOTE | 2016-05-26 22:00 | L&D Flow Sheet ---
LD Flowsheet Datetime Report Generated by CPN: 05/26/2016 22:00 Datetime: 05/26/2016 21:30 Monitor Mode: External (Farzad Ino, RN) Frequency (min): 0 (Farzad Ino, RN) Monitor Mode: External US (Farzad Ino, RN) FHR Baseline Rate : 120 (Farzad Ino, RN) Variability: Moderate 6-25 bpm (Farzad Ino, RN) Accelerations: 15X15 (Farzad Ino, RN) Decelerations: None (Farzad Ino, RN) Datetime: 05/26/2016 21:18 Analgesics/Sedatives: Tylenol (mg) @ 650 (Farzad Poeford, RN) Datetime: 05/26/2016 21:10 NBP Sys/Justina/Mean (mmHg): 130 (QS system process) : 86 (QS system process) : 103 (QS system process) Pulse: 93 (QS system process) LaborFlag: Antepartum (QS system process) Datetime: 05/26/2016 21:06 Cervical Ripening Agents: Cervidil (Farzad Ino, RN) Datetime: 05/26/2016 21:00 Monitor Mode: External US (Farzad Ino, RN) FHR Baseline Rate : 120 (Farzad Ino, RN) Variability: Moderate 6-25 bpm (Farzad Ino, RN) Accelerations: 15X15 (Farzad Ino, RN) Decelerations: None (Farzad Ino, RN) Datetime: 05/26/2016 20:30 Monitor Mode: External (Farzad Ino, RN) Frequency (min): None (Farzad Ino, RN) Monitor Mode: External US (Farzad Ino, RN) FHR Baseline Rate : 120 (Farzad Ino, RN) Variability: Moderate 6-25 bpm (Farzad Ino, RN) Accelerations: 15X15 (Farzad Ino, RN) Decelerations: None (Farzad Ino, RN)
[2016-05-26] MEDS ORDERED: ZOLPIDEM TARTRATE 5 MG TABLET ONE (23:47)
--- NOTE | 2016-05-27 08:00 | L&D Flow Sheet ---
LD Flowsheet Datetime Report Generated by CPN: 05/27/2016 08:00 Datetime: 05/27/2016 07:12 Communication: Report Given to @ Sammie (Farzad Mckinnon, RN) Communication Comments: Care relinquished by Sammie MillerELIF (Farzad Mckinnon, RN) Datetime: 05/27/2016 07:00 Monitor Mode: External (Farzad Mckinnon, RN) Frequency (min): 4-10 (Farzad Mckinnon RN) Quality: Mild (Farzad Ino, RN) Duration (sec): 40-70 (Farzad Ino, RN) Resting Tone (Palpate): Relaxed (Farzad Ino, RN) Monitor Mode: External US (Farzad Ino, RN) FHR Baseline Rate : 125 (Farzad Ino, RN) Variability: Moderate 6-25 bpm (Farzad Ino, RN) Accelerations: 15X15 (Farzad Ino, RN) Datetime: 05/27/2016 06:30 Monitor Mode: External (Farzad Ino, RN) Frequency (min): 2-6 (Farzad Ino, RN) Quality: Mild (Farzad Ino, RN) Duration (sec): 40-90 (Farzad Ino, RN) Resting Tone (Palpate): Relaxed (Farzad Ino, RN) Monitor Mode: External US (Farzad Ino, RN) FHR Baseline Rate : 120 (Farzad Ino, RN) Variability: Moderate 6-25 bpm (Farzad Ino, RN) Accelerations: 10X10 (Farzad Ino, RN) Datetime: 05/27/2016 06:08 Patient Care Comments: Pt up and sitting in rocking chair (Farzad Mckinnon, RN) Datetime: 05/27/2016 06:02 I/O Interventions: Up to BR (Farzad Mckinnon, RN) Datetime: 05/27/2016 06:00 Monitor Mode: External (Farzad Mckinnon, RN) Frequency (min): x3 (Farzad Mckinnon, RN) Quality: Mild (Farzad Mckinnon, RN) Duration (sec): 70 (Farzad Mckinnon, RN) Resting Tone (Palpate): Relaxed (Farzad Mckinnon, RN) Monitor Mode: External US (Farzad Mckinnon, RN) FHR Baseline Rate : 120 (Farzad Mckinnon, RN) Variability: Moderate 6-25 bpm (Farzad Mckinnon, RN) Accelerations: Prolonged (Farzad Ino, RN) Datetime: 05/27/2016 05:30 Monitor Mode: External (Farzad Ino, RN) Frequency (min): x3 (Farzad Ino, RN) Quality: Mild (Farzad Ino, RN) Duration (sec): 50-80 (Farzad Ino, RN) Resting Tone (Palpate): Relaxed (Farzad Ino, RN) Monitor Mode: External US (Farzad Ino, RN) FHR Baseline Rate : 125 (Farzad Ino, RN) Variability: Moderate 6-25 bpm (Farzad Ino, RN) Accelerations: 10X10 (Farzad Ino, RN) Datetime: 05/27/2016 05:00 Monitor Mode: External (Farzad Ino, RN) Frequency (min): x3 (Farzad Ino, RN) Quality: Mild (Farzad Ino, RN) Duration (sec): 50-70 (Farzad Ino, RN) Resting Tone (Palpate): Relaxed (Farzad Ino, RN) Monitor Mode: External US (Farzad Ino, RN) FHR Baseline Rate : 125 (Farzad Ino, RN) Variability: Moderate 6-25 bpm (Farzad Ino, RN) Accelerations: 10X10 (Farzad Ino, RN) Datetime: 05/27/2016 04:30 Monitor Mode: External (Farzad Ino, RN) Frequency (min): 6-9 (Farzad Ino, RN) Quality: Mild (Farzad Ino, RN) Duration (sec): 70-100 (Farzad Ino, RN) Resting Tone (Palpate): Relaxed (Farzad Mckinnon, RN) Monitor Mode: External US (Farzad Mckinnon, RN) FHR Baseline Rate : 115 (Farzad Ino, RN) Variability: Moderate 6-25 bpm (Farzad Ino, RN) Accelerations: 10X10 (Farzad Ino, RN) Datetime: 05/27/2016 04:29 Monitor Interventions for FHR: Ultrasound Adjusted (Farzad Ino, RN) Datetime: 05/27/2016 04:26 Patient Position/Activity: Left Lateral; Semi-Fowlers (Farzad Mckinnon, RN) Patient Care Comments: RN at bedside (Farzad Ino, RN) Datetime: 05/27/2016 04:00 Monitor Mode: External (Farzad Ino, RN) Frequency (min): 4-18 (Farzad Ino, RN) Quality: Mild (Farzad Ino, RN) Duration (sec): 70-90 (Farzad Ino, RN) Resting Tone (Palpate): Relaxed (Farzad Ino, RN) Monitor Mode: External US (Farzad Ino, RN) FHR Baseline Rate : 115 (Farzad Ino, RN) Variability: Moderate 6-25 bpm (Farzad Ino, RN) Accelerations: 15X15 (Farzad Ino, RN) Datetime: 05/27/2016 03:30 Monitor Mode: External (Farzad Ino, RN) Frequency (min): x3 (Farzad Ino, RN) Quality: Mild (Farzad Ino, RN) Duration (sec): 60-90 (Farzad Ino, RN) Resting Tone (Palpate): Relaxed (Farzad Ino, RN) Monitor Mode: External US (Farzad Mckinnon, RN) FHR Baseline Rate : 115 (Farzad Ino, RN) Variability: Moderate 6-25 bpm (Farzad Ino, RN) Accelerations: None (Farzad Ino, RN) Datetime: 05/27/2016 03:08 I/O Interventions: Up to BR (Farzad Ino, RN) Datetime: 05/27/2016 03:00 Monitor Mode: External (Farzad Ino, RN) Frequency (min): x4 (Farzad Ino, RN) Quality: Mild (Farzad Ino, RN) Duration (sec): 60-100 (Afrzad Ino, RN) Resting Tone (Palpate): Relaxed (Farzad Ino, RN) Monitor Mode: External US (Farzad Mckinnon, RN) FHR Baseline Rate : 120 (Farzad Ino, RN) Variability: Moderate 6-25 bpm (Farzad Ino, RN) Accelerations: 15X15 (Farzad Ino, RN) Datetime: 05/27/2016 02:30 Monitor Mode: External (Farzad Ino, RN) Frequency (min): x4 (Farzad Ino, RN) Quality: Mild (Farzad Ino, RN) Duration (sec): 50-80 (Farzad Ino, RN) Resting Tone (Palpate): Relaxed (Farzad Ino, RN) Monitor Mode: External US (Farzad Ino, RN) FHR Baseline Rate : 120 (Farzad Ino, RN) Variability: Moderate 6-25 bpm (Farzad Ino, RN) Accelerations: 15X15 (Farzad Ino, RN) Datetime: 05/27/2016 02:00 Monitor Mode: External (Farzad Ion, RN) Frequency (min): x3 (Farzad Ino, RN) Quality: Mild (Farzad Ino, RN) Duration (sec): 60-110 (Farzad Ino, RN) Resting Tone (Palpate): Relaxed (Farzad Ino, RN) Monitor Mode: External US (Farzad Ino, RN) FHR Baseline Rate : 120 (Frazad Ino, RN) Variability: Moderate 6-25 bpm (Farzad Ino, RN) Accelerations: 15X15 (Farzad Ino, RN) Decelerations: None (Farzad Ino, RN) Datetime: 05/27/2016 01:30 Monitor Mode: External (Farzad Ino, RN) Frequency (min): None (Farzad Ino, RN) Resting Tone (Palpate): Relaxed (Farzad Ino, RN) Monitor Mode: External US (Farzad Ino, RN) FHR Baseline Rate : 120 (Farzad Ino, RN) Variability: Moderate 6-25 bpm (Farzad Ino, RN) Accelerations: 15X15 (Farzad Ino, RN) Decelerations: None (Farzad Ino, RN) Dilatation (cm): 1-2 cm (Farzad Ino, RN) Effacement: 60-70_ effaced (Farzad Ino, RN) Station: minus 3 (Farzad Ino, RN) Consistency: Firm (Farzad Ino, RN) Position: Posterior (Farzad Ino, RN) Total Cedeno's Score: 3 (QS system process) : 0-4 = Unfavorable cervix (QS system process) Datetime: 05/27/2016 01:23 NBP Sys/Justina/Mean (mmHg): 122 (QS system process) : 73 (QS system process) : 92 (QS system process) Pulse: 90 (QS system process) LaborFlag: Antepartum (QS system process) Datetime: 05/27/2016 01:00 Monitor Mode: External (Farzad Ino, RN) Frequency (min): x1 (Farzad Ino, RN) Quality: Mild (Farzad Ino, RN) Duration (sec): 80 (Farzad Ino, RN) Resting Tone (Palpate): Relaxed (Farzad Ino, RN) Monitor Mode: External US (Farzad Ino, RN) FHR Baseline Rate : 120 (Farzad Ino, RN) Variability: Moderate 6-25 bpm (Farzad Ino, RN) Accelerations: 15X15 (Farzad Ino, RN) Decelerations: None (Farzad Ino, RN) Datetime: 05/27/2016 00:30 Monitor Mode: External (Farzad Ino, RN) Quality: Mild (Farzad Ino, RN) Monitor Mode: External US (Farzad Ino, RN) FHR Baseline Rate : 110 (Farzad Ino, RN) Variability: Moderate 6-25 bpm (Farzad Ino, RN) Accelerations: 15X15 (Farzad Ino, RN) Decelerations: None (Farzad Ino, RN) Datetime: 05/27/2016 00:00 Monitor Mode: External (Farzad Ino, RN) Frequency (min): x1 (Farzad Ino, RN) Quality: Mild (Farzad Ino, RN) Duration (sec): 50 (Farzad Ino, RN) Resting Tone (Palpate): Relaxed (Farzad Ino, RN) Monitor Mode: External US (Farzad Ino, RN) FHR Baseline Rate : 110 (Farzad Ino, RN) Variability: Moderate 6-25 bpm (Farzad Ino, RN) Accelerations: 15X15 (Farzad Ino, RN) Decelerations: None (Farzda Ino, RN) Datetime: 05/26/2016 23:51 Analgesics/Sedatives: Ambien (mg) @ 10 (Farzad Ino, RN) Datetime: 05/26/2016 23:30 Monitor Mode: External (Farzad Ino, RN) Frequency (min): X1 (Farzad Ino, RN) Quality: Mild (Farzad Ino, RN) Duration (sec): 70 (Farzad Ino, RN) Resting Tone (Palpate): Relaxed (Farzad Ino, RN) Monitor Mode: External US (Farzad Ino, RN) FHR Baseline Rate : 110 (Farzad Ino, RN) Variability: Moderate 6-25 bpm (Farzad Ino, RN) Accelerations: 15X15 (Farzad Ino, RN) Decelerations: None (Farzad Ino, RN) Datetime: 05/26/2016 23:02 NBP Sys/Justina/Mean (mmHg): 132 (QS system process) : 77 (QS system process) : 99 (QS system process) Pulse: 91 (QS system process) LaborFlag: Antepartum (QS system process) Datetime: 05/26/2016 23:00 Monitor Mode: External (Farzad Ino, RN) Frequency (min): x1 (Farzad Ino, RN) Quality: Mild (Farzad Ino, RN) Duration (sec): 40 (Farzad Ino, RN) Resting Tone (Palpate): Relaxed (Farzad Ino, RN) Monitor Mode: External US (Farzad Ino, RN) FHR Baseline Rate : 120 (Farzad Ino, RN) Variability: Moderate 6-25 bpm (Farzad Ino, RN) Accelerations: 15X15 (Farzad Ino, RN) Decelerations: None (Farzad Ino, RN) Datetime: 05/26/2016 22:30 Monitor Mode: External (Farzad Ino, RN) Frequency (min): Irritability (Farzad Ino, RN) Quality: Mild (Farzad Ino, RN) Duration (sec): 20-30 (Farzad Ino, RN) Resting Tone (Palpate): Relaxed (Farzad Mckinnon RN) Monitor Mode: External US (Farzad Mckinnon RN) FHR Baseline Rate : 115 (Farzad Mckinnon, RN) Variability: Moderate 6-25 bpm (Farzad Mckinnon, RN) Accelerations: 15X15 (Farzad Mckinnon RN) Decelerations: None (Fazrad Mckinnon, RN) Datetime: 05/26/2016 22:00 Monitor Mode: External (Farzad Mckinnon RN) Frequency (min): x2 (Farzad Mckinnon RN) Quality: Mild (Farzad Mckinnon RN) Duration (sec): 50 (Farzad Mckinnon RN) Resting Tone (Palpate): Relaxed (Farzad Mckinnon RN) Monitor Mode: External US (Farzad Mckinnon RN) FHR Baseline Rate : 115 (Farzad Mckinnon, RN) Variability: Moderate 6-25 bpm (Farzad Mckinnon, RN) Accelerations: 15X15 (Farzad Mckinnon RN) Decelerations: None (Farzad Mckinnon RN)
[2016-05-27] MEDS ORDERED: VANCOMYCIN HCL INJ 1000 MG VIAL IV SCH (10:00)
--- NOTE | 2016-05-27 10:00 | L&D Flow Sheet ---
LD Flowsheet Datetime Report Generated by CPN: 05/27/2016 10:00 Datetime: 05/27/2016 08:56 Monitor Interventions for FHR: Ultrasound Adjusted (VILLA Aguilera) Comments: Tracing maternal HR, RN at BS, FHTs in 120s. (VILLA Aguilera) Communication: RN at Bedside (VILLA Aguilera)
[2016-05-27] MEDS ORDERED: VANCOMYCIN HCL INJ 1000 MG VIAL ONE (10:03)
[2016-05-27] MEDS ORDERED: FENTANYL CITRATE INJ/PF 100 MCG/2 ML AMPUL ONE (10:47)
[2016-05-27] MEDS ORDERED: EPHEDRINE SULFATE INJ 50 MG/1 ML AMPULE ONE (10:47)
[2016-05-27] MEDS ORDERED: PHENYLEPHRINE HCL INJ/PF 10 MG/1 ML SDV ONE (10:47)
[2016-05-27] MEDS ORDERED: MISOPROSTOL 0.2 MG TABLET ONE (10:48)
[2016-05-27] MEDS ORDERED: FENTANYL/BUPIVACAINE/NS/PF 200 MCG/100 ML RTUINJ EPI ONE (10:48)
[2016-05-27] MEDS ORDERED: BUPIVACAINE HCL 0.25 % INJ/PF (2.5 MG/1 ML) 30 ML VIAL ONE (10:48)
[2016-05-27] MEDS ORDERED: OXYTOCIN/NORMAL SALINE 20 UNIT/1,000 ML RTUINJ ONE (10:48)
--- NOTE | 2016-05-27 11:19 | L&D Progress Notes ---
PROGRESS NOTES Datetime Report Generated by CPN: 05/27/2016 11:19 PROGRESS NOTE Impression: Arrest of Dilatation/Descent; Reassuring Heart Rate Procedures: Artificial ROM; Sterile Vag Exam Plan: Continue Present Management; Induction Plan Other: pt may have epidural Informed Consent Obtained: Vaginal Delivery Vital Signs : Reviewed Comment: Pt desires epidural Pitocin per protocol Anticipate epdiural VAGINAL EXAM Dilatation: 5 Effacement: 90 Station: 0 Contractions: 5-8 min apart MEMBRANES Membranes: Ruptured Amniotic Fluid Color: Clear FETUS A FHR - Baseline: 125 Monitoring: External US Variability: Moderate 6-25bpm Accelerations: 15X15 Decelerations: None FHR Category: Category I FETUS C SIGNATURE: [id number] Assignment: Meera Mayers MD Signature: with User ID: [email or web address] : with User ID: [email or web address]
[2016-05-27] MEDS ORDERED: DIPH/PERTUSS(ACELL)/TETANUS VAC/PF 0.5 ML SYR (>=10YO) IM PRN (12:33)
[2016-05-27] MEDS ORDERED: DIBUCAINE 1% OINTMENT 28 GM TP PRN (12:33)
[2016-05-27] MEDS ORDERED: ZOLPIDEM TARTRATE 5 MG TABLET PO PRN (12:33)
[2016-05-27] MEDS ORDERED: OXYTOCIN/NORMAL SALINE 1,000 ML IV PRN (12:33)
[2016-05-27] MEDS ORDERED: BENZOCAINE/MENTHOL AEROSOL SPRAY 56 ML TOP PRN (12:33)
[2016-05-27] MEDS ORDERED: ACETAMINOPHEN WITH CODEINE #3 TABLET PO PRN ×2 (12:33)
[2016-05-27] MEDS ORDERED: MEASLES,MUMPS&RUBELLA VACC/PF 0.5 ML VIAL SUBCUT PRN (12:33)
[2016-05-27] MEDS ORDERED: IBUPROFEN 800 MG TABLET PO SCH (14:00)
--- NOTE | 2016-05-27 14:00 | L&D Flow Sheet ---
LD Flowsheet Datetime Report Generated by CPN: 05/27/2016 14:00 Datetime: 05/27/2016 13:55 Vital Signs Stage of : Recovery (VILLA Aguilera) NBP Sys/Justina/Mean (mmHg): 138 (QS system process) : 69 (QS system process) : 96 (QS system process) Pulse: 100 (QS system process) Respirations: 16 (VILLA Aguilera) Pain Pain Scale: 0 (Amy Paul, RNC) Datetime: 05/27/2016 13:40 Vital Signs Stage of : Recovery (Amy Miller RNC) NBP Sys/Justina/Mean (mmHg): 127 (QS system process) : 77 (QS system process) : 95 (QS system process) Pulse: 98 (QS system process) Respirations: 17 (Amy Miller, RNC) Pain Pain Scale: 0 (Amy Paul, RNC) Datetime: 05/27/2016 13:25 Vital Signs Stage of : Recovery (Amy Paul, RNC) NBP Sys/Justina/Mean (mmHg): 130 (QS system process) : 83 (QS system process) : 102 (QS system process) Pulse: 82 (QS system process) Respirations: 16 (Amy Paul, RNC) Pain Pain Scale: 0 (Amy Paul, RNC) Datetime: 05/27/2016 13:09 Vital Signs Stage of : Recovery (Amycyndi Miller, RNC) NBP Sys/Justina/Mean (mmHg): 131 (QS system process) : 76 (QS system process) : 98 (QS system process) Pulse: 90 (QS system process) Respirations: 17 (Amycyndi Miller, RNC) Pain Pain Scale: 0 (Amy Miller, RNC) Datetime: 05/27/2016 12:55 Vital Signs Stage of : Recovery (Amycyndi Miller, RNC) NBP Sys/Justina/Mean (mmHg): 125 (QS system process) : 68 (QS system process) : 91 (QS system process) Pulse: 89 (QS system process) Respirations: 18 (Amycyndi Miller, RNC) Pain Pain Scale: 0 (Amy Paul, RNC) Datetime: 05/27/2016 12:40 Vital Signs Stage of : Recovery (Amy Paul, RNC) NBP Sys/Justina/Mean (mmHg): 137 (QS system process) : 67 (QS system process) : 93 (QS system process) Pulse: 94 (QS system process) Respirations: 17 (Amy Paul, RNC) Pain Pain Scale: 0 (Amy Paul, RNC) Datetime: 05/27/2016 12:24 NBP Sys/Justina/Mean (mmHg): 130 (QS system process) : 73 (QS system process) : 95 (QS system process) Pulse: 111 (QS system process) Datetime: 05/27/2016 12:21 Vital Signs Stage [facility] : [facility] NBP Sys/Justina/Mean (mmHg): 123 (QS system process) : 69 (QS system process) : 90 (QS system process) Pulse: 100 (QS system process) Respirations: 17 ([facility] Temperature (F): 98.0 ([facility] Temperature (C): 36.7 (QS system process) Temperature Route: Oral ([facility] Pain Pain Scale: 0 ([facility] Pain Presence: None/Denies ([facility] Pain Type: N/A ([facility] Datetime: 05/27/2016 12:10 Vital Signs Stage of : Recovery (Amy Paul, RNC) Datetime: 05/27/2016 12:07 Vital Signs Stage of : Recovery (Amy Paul, RNC) Datetime: 05/27/2016 12:03 Pushing Progress: with Pushing (Amy Paul, RNC) Datetime: 05/27/2016 12:00 NBP Sys/Justina/Mean (mmHg): 150 (QS system process) : 88 (QS system process) : 113 (QS system process) Pulse: 133 (QS system process) Stage 2 Pushing: Coached on Pushing; Urge to Push; Involuntary Pushing (Amy Paul, RNC) Pushing Position: Pushing with Contractions (Amy Paul, RNC) Communication LaborFlag: Antepartum (QS system process)
--- NOTE | 2016-05-27 14:29 | Delivery Summary ---
Del Sum A-C Datetime Report Generated by CPN: 05/27/2016 14:29 ADMISSION DATA Chief Complaint: Scheduled Induction of Labor Indication for Induction: Maternal Diabetes Indication for Induction Comment: GDM on oral hypoglycemic med Admission Impression: Term, Intrauterine ; Induction of Labor Admit Provider Comments: Abnormal AFP, negative InformaSeq GBS positive, resistant to Clindamycin. Will begin Vancomycin. GDMA2 on Glyburide See records. Pitocin infusing per protocol-will attempt AROM when station lower. DELIVERY PERSONNEL Delivery Doctor:: Kalei Perez CNM Nurse Program Assistant Certified:: Kalie Perez CNM Labor and Delivery Nurse:: Amy Miller RNconverting operator Nurse:: VILLA Duran Office Service Coordinator:: VILLA Hurtado Supply Chain Tech/COIN MACHINE SUPERVISOR: Keren Carbajal, Supply Chain Tech/COIN MACHINE SUPERVISOR: Yamel Floyd CNA II MATERNAL INFORMATION Delivery Anesthesia: Epidural Medications After Delivery: Pitocin Bolus-Please Comment Meds After Delivery Comment: Pitocin 20 units in 1000 mL NS bolusing at delivery of placenta Estimated Blood Loss (ml): 300 Maternal Complications: Other Other Maternal Complications: IOL for GDM Provider Comments: of viable female , head delivered without difficulty, loose nuchal X1 noted, reduced, shoulders and body delivered without difficulty. with spontaneous cry and respirations, to maternal abdomen, cord clamped X2, infant cut free by pts after 2 min. delay. Spontaneous delivery of placenta, via hernandez mechanism, appears intact, 3VC, uterus initally boggy, hemostasis acheived with external fundal massage and IV pitocin, and rectal cytotec. Vagina and perineum inspected and repaired as above. Routine pp care. and mother in stable condition. LABOR SUMMARY EDC: 06/01/2016 00:00 No. Babies in Womb: 1 Attempted: No Labor Anesthesia: Epidural LABOR INFORMATION Reason for Induction: Maternal Diabetes Onset of Labor: 05/27/2016 08:00 Cervical Ripening Agents: Cervidil Oxytocin: Induction Group B Beta Strep: positive Antibiotics # of Doses: 2 Antibiotics Time of Last Dose: 1024 Name of Antibiotic Given: Vancomycin 1 GM MEMBRANES Membranes Rupture Method: Artificial Rupture of Membranes: 05/27/2016 09:57 Length of Rupture (hr): 2.15 Amniotic Fluid Color: Clear Amniotic Fluid Amount: Moderate Amniotic Fluid Odor: Normal STAGES OF LABOR Stage 3 hr: 0 Stage 3 min: 4 Total Time in Labor hr: 4 Total Time in Labor min: 10 VAGINAL DELIVERY Episiotomy: None Laceration Extension: First Degree Laceration Type: Perineal; Periurethral Laceration Repair: Yes Laceration Repair Note: 1st degree perineal laceration repaired with 3-0 Chromic in usual fashion with epidural for anesthesia, 1 single suture placed periurethral Sponge Count Correct: Yes Sharps Count Correct: Yes CSECTION DELIVERY Primary Indication: N/A Secondary Indication: N/A CSection Incidence: N/A Labor: N/A Elective: N/A CSection Incision: N/A BABY A INFORMATION Delivery Date/Time: 05/27/2016 12:06 Method of Delivery: Vaginal Born in Route : No : N/A Forceps: N/A Vacuum Extraction: N/A Shoulder Dystocia : No PRESENTATION/POSITION BABY A Presentation: Cephalic Cephalic Presentation: Vertex Vertex Position: Right Occipital Anterior Breech Presentation: N/A PLACENTA INFORMATION BABY A Placenta Delivery Time : 05/27/2016 12:10 Placenta Method of Delivery: Spontaneous Placenta Status: Delivered SCORES BABY A Heart Rate 1 min: >100 bpm Resp Effort 1 min: Good Cry Reflex Irritability 1 min: Cough or Sneeze or Pulls Away Muscle Tone 1 min: Active Motion Color 1 min: Body Peralta, Extremities Blue Resuscitation Effort 1 min: Tactile Stimulation SCORE 1 MIN: 9 Heart Rate 5 min: >100 bpm Resp Effort 5 min: Good Cry Reflex Irritability 5 min: Cough or Sneeze or Pulls Away Muscle Tone 5 min: Active Motion Color 5 min: Body Peralta, Extremities Blue Resuscitation Effort 5 min: N/A SCORE 5 MIN: 9 INFORMATION BABY A Gestational Age at Delivery: 39.2 Gestational Status: Full Term- 39- 40.6 Weeks Outcome : Liveborn Infant Condition : Stable Sex: Female IDENTIFICATION BABY A Infant Verification Date/Time: 05/27/2016 12:37 ID Band Number: [id number] Mother's Name Verified: Yes Infant RN Verifying Infant: Robert Paul RNC Additional Verifying Personnel: S Dayton RNC CORD INFORMATION BABY A No. Cord Vessels: 3 Nuchal Cord : Around Neck x1, Loose Cord Blood Taken: Yes-For Storage (Mom's Blood type +) Suction: None ASSESSMENT BABY A Infant Complications: None Physical Findings at Delivery: Within Normal Limits Respirations: Appears Normal Skin to Skin: Yes Chemical Laboratory Tester/ALS Called : No Infant Care By: D Kristiavarupale RNC Transferred To: Remains with Mother BABY B INFORMATION : N/A SIGNATURES Assignment: Meera Mayers MD Signature: with User ID: [email or web address] : with User ID: [email or web address] : I personally evaluated and examined the patient in conjunction with the MLP and agree with the assessment, treatment plan and disposition.
--- NOTE | 2016-05-27 14:36 | Admission Physical ---
Datetime Report Generated by CPN: 05/27/2016 14:36 CURRENT ADMISSION Chief Complaint: Scheduled Induction of Labor Indication for Induction: Maternal Diabetes Indication for Induction- Other: GDM on oral hypoglycemic med Admit Plan: Admit to Unit; Initiate Labor Induction Protocol ALLERGIES Medication Allergies: Yes Medication Allergies: amoxicillin/SV/Anaphylaxis (05/26/2016) Medication Allergies: amoxicillin/SV/Anaphylaxis (04/24/2016) Medication Allergies: amoxicillin/SV/Anaphylaxis (02/08/2015) Latex: No Latex Allergies OBSTETRICAL HISTORY EDC: 06/01/2016 00:00 : 4 Para: 2 Para: 2 Term: 2 : 0 SAB: 0 IAB: 1 Ectopic: 0 Livin Cesareans: 0 VBACs: 0 Multiple Births: 0 Gestational Diabetes: Yes Rh Sensitization: No Incompetent Cervix: No DORIS: No Infertility: No ART Treatment: No Uterine Anomaly: No IUGR: No Hx Previous C/S: No Macrosomia: Yes Hx Loss/Stillborn: No PIH: No Hx : No Placenta Previa/Abruption: No Depression/PP Depression: No PTL/PROM: No Post Hemorrhage: No Current Procedures: Ultrasound; NST Obstetrical History Comments: G1: EA2001 G2: 2006 babyboy G3: 2014 babyboy G4: current SEE RECORDS Alcohol: No Marijuana : No Cocaine: No Other Illicit Drugs: No Cigarettes: Never Smoker. [id number] MEDICAL HISTORY Diabetes: Yes Diabetes Type: Gestational Diabetes Blood Transfusion: No Pulmonary Disease (Asthma, TB): No Breast Disease: No Hypertension: No Vp Delivery Surgery: No Heart Disease: No Hosp/Surgery: Yes Autoimmune Disorder: No Anesthetic Complications: No Kidney Disease: No Abnormal Pap Smear: No Neuro/Epilepsy: No Psychiatric Disorders: No Other Medical Diseases: No Hepatitis/Liver Disease: No Significant Family History: No Varicosities/Phlebitis: No Trauma/Violence : No Thyroid Dysfunction: No Medical History Comments: childbirth; GDM on glyburide INFECTIOUS HISTORY Gonorrhea: No Genital Herpes: No Chlamydia: No Tuberculosis: No Syphilis: No Hepatitis: No HIV/AIDS Exposure: No Rash or Viral Illness: No HPV: No PHYSICAL EXAM General: Normal HEENT: Normal Neurologic: Normal Thyroid: Deferred Heart: Normal Lungs: Normal Breast: Deferred Back: Normal Abdomen: Normal Genitourinary Exam: Normal Extremities: Normal DTRs: Normal Pelvic Type: Adequate Physical Exam Comments: Gravid Vital Signs: Reviewed; Within Normal Limits VAGINAL EXAM Dilatation: 5 Dilatation: 2 Dilatation: 2 Effacement: 90 Effacement: 60 Effacement: 60 Station: 0 Station: -3 Contraction Comments: 5-8 min apart MEMBRANES Membranes: Ruptured Membranes: Intact Membranes: Intact Amniotic Fluid Color: Clear FETUS A EGA: 39.1 Monitoring: External US FHR- Baseline: 125 Variability: Moderate 6-25bpm Accelerations: 15X15 FHR Category: Category I Presentation: Vertex Admit Comment: Abnormal AFP, negative InformaSeq GBS positive, resistant to Clindamycin. Will begin Vancomycin. GDMA2 on Glyburide See records. Pitocin infusing per protocol-will attempt AROM when station lower. PLANS FOR LABOR AND DELIVERY Labor and Delivery: None Pain Management: None Feeding Preference: Breast Benefit of Breast Feed Discussed: Yes Circumcision: N/A INFORMED CONSENT Informed Consent Obtained: Vaginal Delivery Assignment: Ella Zendejas MD Signature: with User ID: Jim : with User ID: [email or web address] : I personally evaluated and examined the patient in conjunction with the MLP and agree with the assessment, treatment plan and disposition. : I personally evaluated and examined the patient in conjunction with the MLP and agree with the assessment, treatment plan and disposition. : I personally evaluated and examined the patient in conjunction with the MLP and agree with the assessment, treatment plan and disposition.
[2016-05-27] MEDS: FERROUS SULFATE 325 MG TABLET PO SCH (18:13)
[2016-05-27] MEDS: DOCUSATE SODIUM 100 MG CAPSULE PO SCH (18:14)
--- NOTE | 2016-05-27 19:00 | L&D Flow Sheet ---
LD Flowsheet Datetime Report Generated by CPN: 05/27/2016 19:00 Datetime: 05/27/2016 13:55 Vital Signs Stage of : Recovery (VILLA Aguilera) NBP Sys/Justina/Mean (mmHg): 138 (QS system process) : 69 (QS system process) : 96 (QS system process) Pulse: 100 (QS system process) Respirations: 16 (VILLA Aguilera) Pain Pain Scale: 0 (Amy Paul, RNC) Datetime: 05/27/2016 13:40 Vital Signs Stage of : Recovery (Amy Miller RNC) NBP Sys/Justina/Mean (mmHg): 127 (QS system process) : 77 (QS system process) : 95 (QS system process) Pulse: 98 (QS system process) Respirations: 17 (Amy Miller, RNC) Pain Pain Scale: 0 (Amy Paul, RNC) Datetime: 05/27/2016 13:25 Vital Signs Stage of : Recovery (Amy Paul, RNC) NBP Sys/Justina/Mean (mmHg): 130 (QS system process) : 83 (QS system process) : 102 (QS system process) Pulse: 82 (QS system process) Respirations: 16 (Amy Paul, RNC) Pain Pain Scale: 0 (Amy Paul, RNC) Datetime: 05/27/2016 13:09 Vital Signs Stage of : Recovery (Amycyndi Miller, RNC) NBP Sys/Justina/Mean (mmHg): 131 (QS system process) : 76 (QS system process) : 98 (QS system process) Pulse: 90 (QS system process) Respirations: 17 (Amycyndi Miller, RNC) Pain Pain Scale: 0 (Amy Miller, RNC) Datetime: 05/27/2016 12:55 Vital Signs Stage of : Recovery (Amycyndi Miller, RNC) NBP Sys/Justina/Mean (mmHg): 125 (QS system process) : 68 (QS system process) : 91 (QS system process) Pulse: 89 (QS system process) Respirations: 18 (Amycyndi Miller, RNC) Pain Pain Scale: 0 (Amy Paul, RNC) Datetime: 05/27/2016 12:40 Vital Signs Stage of : Recovery (Amy Paul, RNC) NBP Sys/Justina/Mean (mmHg): 137 (QS system process) : 67 (QS system process) : 93 (QS system process) Pulse: 94 (QS system process) Respirations: 17 (Amy Paul, RNC) Pain Pain Scale: 0 (Amy Paul, RNC) Datetime: 05/27/2016 12:24 NBP Sys/Justina/Mean (mmHg): 130 (QS system process) : 73 (QS system process) : 95 (QS system process) Pulse: 111 (QS system process) Datetime: 05/27/2016 12:21 Vital Signs [facility] : [facility] NBP Sys/Justina/Mean (mmHg): 123 (QS system process) : 69 (QS system process) : 90 (QS system process) Pulse: 100 (QS system process) Respirations: 17 [facility] Temperature (F): 98.0 ([facility] Temperature (C): 36.7 (QS system process) Temperature Route: Oral ([facility] Pain Pain Scale: 0 ([facility] Pain Presence: None/Denies ([facility] Pain Type: N/A ([facility] Datetime: 05/27/2016 12:10 Vital Signs Stage of : Recovery (Amy Paul, RNC) Datetime: 05/27/2016 12:07 Vital Signs Stage of : Recovery (Amy Paul, RNC) Datetime: 05/27/2016 12:03 Pushing Progress: with Pushing (Amycyndi Miller, RNC) Datetime: 05/27/2016 12:00 NBP Sys/Justina/Mean (mmHg): 150 (QS system process) : 88 (QS system process) : 113 (QS system process) Pulse: 133 (QS system process) Stage 2 Pushing: Coached on Pushing; Urge to Push; Involuntary Pushing (Amy Miller, RNC) Pushing Position: Pushing with Contractions (Amy Miller, RNC) LaborFlag: Antepartum (QS system process) Datetime: 05/27/2016 11:59 Patient Care Comments: CPN down see paper strip for monitoring (VILLA Hurtado) Preparation for Delivery: Perineal Prep Done; Setup for Delivery (VILLA Aguilera) Datetime: 05/27/2016 11:57 Vaginal Exam Dilatation (cm): 10.0 (VILLA Aguilera) Effacement (%): 100 (VILLA Aguilera) Station: 2 (VILLA Aguilera) Exam by: H Chris CNM (VILLA Aguilera) I/O Interventions: Enciso Discontinued (VILLA Aguilera) Stage 2 Pushing: Coached on Pushing; Urge to Push (Amy Paul, RNC) Datetime: 05/27/2016 11:56 NBP Sys/Justina/Mean (mmHg): 155 (QS system process) : 83 (QS system process) : 111 (QS system process) Pulse: 130 (QS system process) LaborFlag: Antepartum (QS system process) Datetime: 05/27/2016 11:50 NBP Sys/Justina/Mean (mmHg): 144 (QS system process) : 78 (QS system process) : 104 (QS system process) Pulse: 110 (QS system process) Vaginal Exam Dilatation (cm): 10.0 (VILLA Aguilera) Effacement (%): 10 (VILLA Aguilera) Station: 1 (VILLA Aguilera) Exam by: H Chris CNM (VILLA Aguilera) LaborFlag: Antepartum (QS system process) Datetime: 05/27/2016 11:45 Uterine Activity Monitor Mode: External; Palpation (VILLA Aguilera) Frequency (min): 3-5 (VILLA Aguilera) Quality: Moderate (VILLA Aguilera) Duration (sec): 90-120 (VILLA Aguilera) Duration Criteria: Less than Two 120 Second Contractions (Amy Paul, RNC) Pattern: Normal: <= 5 Contractions in 10 Minutes (Amy Paul, RNC) Resting Tone (Palpate): Relaxed (Amy Miller, RNC) Assessment A Monitor Mode: External US (Amy Miller, RNC) FHR Baseline Rate : 135 (Amy Paul, RNC) Variability: Moderate 6-25 bpm (Amy Paul, RNC) Accelerations: 15X15 (Amy Paul, RNC) Decelerations: None (Amy Paul, RNC) Datetime: 05/27/2016 11:44 NBP Sys/Justina/Mean (mmHg): 141 (QS system process) : 82 (QS system process) : 105 (QS system process) Pulse: 108 (QS system process) LaborFlag: Antepartum (QS system process) Datetime: 05/27/2016 11:42 NBP Sys/Justina/Mean (mmHg): 144 (QS system process) : 82 (QS system process) : 106 (QS system process) Pulse: 110 (QS system process) LaborFlag: Antepartum (QS system process) Datetime: 05/27/2016 11:40 NBP Sys/Justina/Mean (mmHg): 146 (QS system process) : 87 (QS system process) : 108 (QS system process) Pulse: 111 (QS system process) Temperature (F): 98.1 (VILLA Aguilera) Temperature (C): 36.7 (QS system process) Temperature Route: Oral (VILLA Aguilera) I/O Interventions: Enciso Cath Inserted (VILLA Aguilera) LaborFlag: Antepartum (QS system process) Datetime: 05/27/2016 11:38 NBP Sys/Justina/Mean (mmHg): 150 (QS system process) : 84 (QS system process) : 112 (QS system process) Pulse: 109 (QS system process) LaborFlag: Antepartum (QS system process) Datetime: 05/27/2016 11:36 NBP Sys/Justina/Mean (mmHg): 156 (QS system process) : 90 (QS system process) : 114 (QS system process) Pulse: 105 (QS system process) Epidural Procedure: Cath Placed; Loading Dose (VILLA Aguilera) Epidural Procedure Other: Pump Started (VILLA Aguilera) LaborFlag: Antepartum (QS system process) Datetime: 05/27/2016 11:34 NBP Sys/Justina/Mean (mmHg): 153 (QS system process) : 87 (QS system process) : 113 (QS system process) Pulse: 105 (QS system process) LaborFlag: Antepartum (QS system process) Datetime: 05/27/2016 11:33 Pulse: 110 (QS system process) SpO2 (%): 100 (QS system process) Epidural Procedure: Test Dose (VILLA Aguilera) LaborFlag: Antepartum (QS system process) Datetime: 05/27/2016 11:30 Uterine Activity Monitor Mode: External; Palpation (VILLA Aguilera) Frequency (min): 5-7 (VILLA Aguilera) Quality: Mild/Moderate (VILLA Aguilera) Duration (sec): 90-120 (Amy Paul, RNC) Duration Criteria: Less than Two 120 Second Contractions (Amy Paul, RNC) Pattern: Normal: <= 5 Contractions in 10 Minutes (Amy Paul, RNC) Resting Tone (Palpate): Relaxed (Amy Paul, RNC) Assessment A Monitor Mode: External US (Amy Paul, RNC) FHR Baseline Rate : 125 (Amy Paul, RNC) FHR Baseline Changes: Unable to Determine (Liya Wellington, RNC) Variability: Moderate 6-25 bpm (Amy Paul, RNC) Accelerations: 15X15 (Amy Paul, RNC) Decelerations: None (Amy Paul, RNC) Comments: sitting for epidural, RN at bedside adjusting monitors (Liya Wellington, RNC) Datetime: 05/27/2016 11:29 Anesthesia Comments: Dr. Wilson at for Epidural placement. (Amy Paul, RNC) Datetime: 05/27/2016 11:27 Patient Care IV/Blood Work: IV Bag Number @ 2 (Amy Paul, RNC) Datetime: 05/27/2016 11:21 Procedure TIME OUT Procedure Verify: Correct Patient Identity; Correct Side and Site are Marked; Accurate Procedure Consent Form; Agreement on Procedure to be Done; Correct Patient Position; Relevant Images and Results are Properly Labeled and Displayed; Addressed Need to Administer Antibiotics or Fluids for Irrigation; Safety Precautions Based on Patient History or Medication Use (Amy Miller RNC) Anesthesia Anesthesia Plans: Epidural (Amy Miller RNC) Epidural Positioning: Sitting (Amy Miller, RNC) Datetime: 05/27/2016:14 Uterine Activity Monitor Mode: External; Palpation (Liya Camp, RNC) Frequency (min): 5-6 (Liya Camp, RNC) Quality: Moderate (Liya Camp, RNC) Duration (sec): 60-70 (Liya Camp, RNC) Duration Criteria: Less than Two 120 Second Contractions (Liya Camp, RNC) Pattern: Normal: <= 5 Contractions in 10 Minutes (Liya Camp, RNC) Resting Tone (Palpate): Relaxed (Liya Camp, RNC) Datetime: 05/27/2016 11:00 Uterine Activity Monitor Mode: External; Palpation (Liya Camp, RNC) Frequency (min): 4-5 (Liya Camp, RNC) Quality: Moderate (Liya Camp, RNC) Duration (sec): 50-70 (Liya Camp, RNC) Duration Criteria: Less than Two 120 Second Contractions (Liya Camp, RNC) Pattern: Normal: <= 5 Contractions in 10 Minutes (Liya Camp, RNC) Resting Tone (Palpate): Relaxed (Liya Camp, RNC) Assessment A Monitor Mode: External US; Auscultation (Liya Camp, RNC) FHR Baseline Rate : 125 (Liya Camp, RNC) FHR Baseline Changes: No Baseline Change (Liya Camp, RNC) Variability: Moderate 6-25 bpm (Liya Camp, RNC) Accelerations: 15X15 (Liya Camp, RNC) Decelerations: None (Liya Camp, RNC) Datetime: 05/27/2016 10:30 Uterine Activity Monitor Mode: External; Palpation (Amy Paul, RNC) Frequency (min): 5-7 (Amy Paul, RNC) Quality: Mild/Moderate (Amy Paul, RNC) Duration (sec): 60-90 (Amy Pual, RNC) Duration Criteria: Less than Two 120 Second Contractions (Amy Paul, RNC) Pattern: Normal: <= 5 Contractions in 10 Minutes (Amy Paul, RNC) Resting Tone (Palpate): Relaxed (Amy Paul, RNC) Assessment A Monitor Mode: External US (Amy Paul, RNC) FHR Baseline Rate : 135 (Amy Paul, RNC) Variability: Moderate 6-25 bpm (May Paul, RNC) Accelerations: 15X15 (Amy Paul, RNC) Decelerations: None (Amy Paul, RNC) Datetime: 05/27/2016 10:22 Medications Antibiotics: Other Antibiotic @ Vancomycin 1 GM IVPB (VILLA Aguilera) Patient Care IV/Blood Work: IV Bolus Started (VILLA Aguilera) Patient Care Comments: IV bolus started for Epidural. (VILLA Aguilera) Datetime: 05/27/2016 10:21 NBP Sys/Justina/Mean (mmHg): 137 (QS system process) : 83 (QS system process) : 104 (QS system process) Pulse: 100 (QS system process) Respirations: 17 (Amy Paul, RNC) Temperature (F): 98.3 (VILLA Aguilera) Temperature (C): 36.8 (QS system process) Temperature Route: Oral (Amy Miller RNC) Pain Pain Scale: 4 (VILLA Aguilera) Pain Presence: Intermittent (Amy Miller RNC) Pain Type: Cramping; Contraction (Amy Miller, RNC) Pain Location: Abdomen (Amy Miller RNC) Pain Coping: Declines Medication or Epidural (Amy Miller RNC) Maternal Assessment Level of Consciousness: Fully Conscious (VILLA Aguilera) DTR's/Clonus: DTRs 2+; No Clonus (Amy Miller RNC) Headache: Denies (Amy Miller RNC) Breath Sounds, Left: Clear and Equal (Amy Miller RNC) Breath Sounds, Right: Clear and Equal (Amy Miller RNC) Nausea/Vomiting: Denies (Amy Miller RNAixa) RUQ Epigastric Pain: Denies (Amy Miller RNC) Comfort Measures: Breathing/Relaxation (Amy Miller, RNC) LaborFlag: Antepartum (QS system process) Datetime: 05/27/2016 10:15 Uterine Activity Monitor Mode: External; Palpation (Liya Camp, RNC) Frequency (min): 2-5 (Liya Camp, RNC) Quality: Mild/Moderate (Liya Camp, RNC) Duration (sec): 50-70 (Liya Camp, RNC) Duration Criteria: Less than Two 120 Second Contractions (Liya Camp, RNC) Pattern: Normal: <= 5 Contractions in 10 Minutes (Liya Camp, RNC) Resting Tone (Palpate): Relaxed (Liya Camp, RNC) Assessment A Monitor Mode: External US; Auscultation (Liya Camp, RNC) FHR Baseline Rate : 130 (Liya Camp, RNC) FHR Baseline Changes: No Baseline Change (Liya Camp, RNC) Variability: Moderate 6-25 bpm (Liya Camp, RNC) Accelerations: 10X10 (Liya Camp, RNC) Decelerations: None (Liya Camp, RNC) Datetime: 05/27/2016 09:57 Vaginal Exam Dilatation (cm): 5.0 (VILLA Aguilera) Effacement (%): 90 (VILLA Aguilera) Station: 0 (VILLA Aguilera) Exam by: Luz Marina Perez CNM (VILLA Aguilera) Membrane Status: Ruptured (VILLA Aguilera) Membranes Rupture Method: Artificial (VILLA Aguilera) Amniotic Fluid Color: Clear (Amy Paul, RNC) Amniotic Fluid Amount: Moderate (Amycyndi Miller, RNC) Datetime: 05/27/2016 08:56 Monitor Interventions for FHR: Ultrasound Adjusted (Amy Millre, RNC) Comments: Tracing maternal HR, RN at BS, FHTs in 120s. (Amy Miller, RNC) Communication Communication: RN at Bedside (Amycyndi Miller, RNC) Datetime: 05/27/2016 08:30 Uterine Activity Monitor Mode: External; Palpation (Amy Paul, RNC) Frequency (min): 5-7 (Amy Paul, RNC) Quality: Mild/Moderate (Amy Paul, RNC) Duration (sec): 60-120 (Amy Paul, RNC) Duration Criteria: Less than Two 120 Second Contractions (Amy Paul, RNC) Pattern: Normal: <= 5 Contractions in 10 Minutes (Amy Paul, RNC) Resting Tone (Palpate): Relaxed (Amy Paul, RNC) Assessment A Monitor Mode: External US (Amy Paul, RNC) FHR Baseline Rate : 135 (Amy Paul, RNC) Variability: Moderate 6-25 bpm (Amy Paul, RNC) Accelerations: 15X15 (Amy Paul, RNC) Decelerations: None (Amy Paul, RNC) Datetime: 05/27/2016 08:10 Uterine Activity Monitor Mode: External; Palpation (Amy Paul, [facility]) Frequency (min): 5-7 (Amy Paul, C) Quality: Mild/Moderate (Amy Paul, RNC) Duration (sec): 60-90 (Amy Paul, [facility]) Duration Criteria: Less than Two 120 Second Contractions (Amy Paul, RN) Pattern: Normal: <= 5 Contractions in 10 Minutes (Amy Paul, RNC) Resting Tone (Palpate): Relaxed (Amy Paul, C) Assessment A Monitor Mode: External US (Amy Paul, [facility]) FHR Baseline Rate : 140 (Amy Paul, C) Variability: Moderate 6-25 bpm (Amy Paul, RNC) Accelerations: 15X15 (Amy Miller, RNC) Decelerations: None (Amy Miller, RNC) Datetime: 05/27/2016 07:12 Communication Communication: Report Given to @ Sammie (Farzad Mckinnon, RN) Communication Comments: Care relinquished by Sammie Miller, RN (Farzad Mckinnon, RN) Datetime: 05/27/2016 07:00 Uterine Activity Monitor Mode: External (Farzad Mckinnon, RN) Frequency (min): 4-10 (Farzad Mckinnon, ELIF) Quality: Mild (Farzad Mckinnon, ELIF) Duration (sec): 40-70 (Farzad Mckinnon RN) Resting Tone (Palpate): Relaxed (Farzad Mckinnon, ELIF) Assessment A Monitor Mode: External US (Farzad Mckinnon RN) FHR Baseline Rate : 125 (Farzad Mckinnon RN) Variability: Moderate 6-25 bpm (Farzad Mckinnon RN) Accelerations: 15X15 (Farzad Mckinnon RN)
[2016-05-28] MEDS: IBUPROFEN 800 MG TABLET PO SCH ×3 (01:45→17:51)
--- NOTE | 2016-05-28 06:00 | L&D General Admission ---
General Admit Datetime Report Generated by CPN: 05/28/2016 06:00 INFORMATION Patient Age: 30 (04/06/2016 12:09:QS system process) EDC: 06/01/2016 00:00 (04/24/2016 12:58:Mendy Jung RN) : 4 (04/24/2016 12:58:Mendy Jung RN) Para: 2 (04/24/2016 13:36:Mendy Jung RN) Term: 2 (04/24/2016 12:58:Monica Vergara RN) : 0 (04/24/2016 12:58:Monica Vergara RN) Spontaneous Abortions: 0 (04/24/2016 12:58:Monica Vergara RN) Induced Abortions: 1 (04/24/2016 12:58:Monica Vergara RN) Livin (04/24/2016 12:58:Monica Vergara RN) Cesareans: 0 (04/24/2016 12:58:Monica Vergara RN) VBACs: 0 (04/24/2016 12:58:Monica Vergara RN) Ectopic: 0 (04/24/2016 12:58:Monica Vergara RN) Multiple Births: 0 (04/24/2016 12:58:Monica Vergara RN) Baby, Number in Womb: 1 (04/24/2016 13:36:Mendy Jung RN) CARE Primary Project Assistant: [facility] (04/24/2016 12:58:Mendy Jung RN) Month of 1st Visit: October (04/24/2016 12:58:Cecilia Mayers RN) Adequate Care: Yes (04/24/2016 12:58:Cecilia Mayers RN) Height (in): 65 (04/24/2016 13:03:QS system process) ALLERGIES Medication Allergy: Yes (04/24/2016 12:58:Cecilia Mayers RN) Medication Allergies: amoxicillin/SV/Anaphylaxis (05/26/2016) (05/26/2016 08:33:QS system process) Latex Allergy: No Latex Allergies (04/24/2016 12:58:Cecilia Mayers RN) COMMUNICATION Primary Language: Fijian (04/24/2016 12:58:Mendy Jung RN) Medical Tx Preferred Language: Fijian (04/24/2016 12:58:Mendy Jung RN) DEMOGRAPHICS Address: [address] [place] [id number] (04/06/2016 12:09:QS system process) Zipcode: [address] (04/06/2016 12:09:QS system process) Home (04/06/2016 12:09:QS system process) SSN: [id number] (04/06/2016 12:09:QS system process) Next of Kin Name: SEBASTIAN ROSARIO (04/06/2016 12:09:QS system process) Next of Kin (04/06/2016 12:09:QS system process) Next of Kin Relationship: SPO (04/06/2016 12:09:QS system process) Date of : 1985 (04/06/2016 12:09:QS system process) Marital Status: (04/06/2016 12:09:QS system process) Sex: Female (04/06/2016 12:09:QS system process) Race: (04/06/2016 12:09:QS system process) Ethnicity: Non- or (04/06/2016 12:09:QS system process) Sikhism: None (04/06/2016 12:09:QS system process) DRUG AND ALCOHOL USE Alcohol: No (04/24/2016 12:58:Cecilia Mayers RN) Cigarettes: Never Smoker. [id number] (04/24/2016 12:58:Cecilia Mayers RN) Marijuana: No (04/24/2016 12:58:Cecilia Mayers RN) Cocaine: No (04/24/2016 12:58:Cecilia Mayers RN) Other Illicit Drugs: No (04/24/2016 12:58:Cecilia Mayers RN) VACCINE HISTORY Influenza Vaccine: Yes (04/24/2016 12:58:Cecilia Mayers RN) Pneumococcal Vaccine: No (04/24/2016 12:58:Cecilia Mayers RN) Tetanus Vaccine: Yes (04/24/2016 12:58:Cecilia Mayers RN) Tdap Vaccine: Yes (04/24/2016 12:58:Cecilia Mayers RN) Hepatitis B Vaccine: Yes (04/24/2016 12:58:Cecilia Mayers RN) Occupational Therapy Department Chair: [facility] (04/24/2016 12:58:Cecilia Mayers RN) Feeding Preference: Breast (04/24/2016 12:58:Cecilia Mayers RN) Benefit of Breast Feed Discussed: Yes (04/24/2016 12:58:Cecilia Mayers RN) Circumcision: N/A (04/24/2016 12:58:Cecilia Mayers RN) Classes Attended: No (04/24/2016 12:58:Cecilia Mayers RN) Tubal Ligation: Yes (04/24/2016 12:58:Cecilia Mayers RN) Tubal Authorization Signed: Yes (04/24/2016 12:58:Cecilia Mayers RN) Consent: N/A (04/24/2016 12:58:Cecilia Mayers RN) Consent Signed: N/A (04/24/2016 12:58:Cecilia Mayers RN) Pain Management Plans: None (04/24/2016 12:58:Cecilia Mayers RN) Plans for Labor and Delivery: None (04/24/2016 12:58:Cecilia Mayers RN) Support Person: Sebastian Rosario (04/24/2016 12:58:Cecilia Mayers RN) Support Person Relationship: (04/24/2016 12:58:Cecilia Mayers RN) Cultural/Spritual Practice: No (04/24/2016 12:58:Cecilia Mayers RN) Spir/Cult Dietary Needs: No (04/24/2016 12:58:Cecilia Mayers RN) LIVING SITUATION/DISCHARGE PLAN Living Arrangements: House (04/24/2016 12:58:Cecilia Mayers RN) Adequate Access to:: Electric; Heat; Refrigeration; Plumbing/Running water; Phone; Transportation (04/24/2016 12:58:Cecilia Mayers RN) WIC Program: Yes (04/24/2016 12:58:Cecilia Mayers RN) Discharge Business And Financial Counsel Person: Sebastian Rosario (04/24/2016 12:58:Cecilia Mayers RN) Person to Help after Discharge: Sebastian Mcwilliams (04/24/2016 12:58:Cecilia Mayers RN) Currently Using Commun Resources: No (04/24/2016 12:58:Cecilia Mayers RN) Outside Agency/Web Manager: No (04/24/2016 12:58:Monica Vergara RN) Car Seat for Discharge: Yes (04/24/2016 12:58:Cecilia Mayers RN) Adoption Requested: No (04/24/2016 12:58:Cecilia Mayers RN) Pt Contact w/infant Post : N/A (04/24/2016 12:58:Cecilia Mayers RN) LABS Blood Type: A Positive (04/24/2016 12:58:Porsche Cooper RN) Antibody Screen: negative (04/24/2016 12:58:Porsche Cooper RN) Rho(G) this : Not Applicable (04/24/2016 12:58:Monica Vergara RN) Hemoglobin: 9.7 L (05/26/2016 08:41:QS system process) Hematocrit: 29.3 L (05/26/2016 08:41:QS system process) MCV: 82 (05/26/2016 08:41:QS system process) Group Beta Strep: positive (04/24/2016 12:58:Porsche Cooper RN) Gonorrhea: Negative (04/24/2016 12:58:Porsche Cooper RN) Chlamydia: Negative (04/24/2016 12:58:Porsche Cooper RN) RPR/VDRL: Nonreactive (Annotations: Data stored by CPN on behalf of user) (04/24/2016 12:58:Porsche Cooper RN) HIV Results: non-reactive (04/24/2016 12:58:Porsche Cooper RN) Hepatitis B: Negative (04/24/2016 12:58:Porsche Cooper RN) Rubella: Immune (04/24/2016 12:58:Porsche Cooper RN) Varicella: Non Susceptible (04/24/2016 12:58:Porsche Cooper RN) OB/PREVIOUS HISTORY Previous Procedures: Ultrasound (04/24/2016 12:58:Monica Vergara RN) Current Procedures: Ultrasound; NST (04/24/2016 12:58:Cecilia Mayers RN) History of Previous : No (04/24/2016 12:58:Cecilia Mayers RN) History of Gestational Diabetes: Yes (04/24/2016 12:58:Cecilia Mayers RN) History of PIH: No (04/24/2016 12:58:Cecilia Mayers RN) History of Incompetent Cervix: No (04/24/2016 12:58:Cecilia Mayers RN) History of Placenta Previa/Abrup: No (04/24/2016 12:58:Cecilia Mayers RN) History of Macrosomia: Yes (04/24/2016 12:58:Cecilia Mayers RN) History of IUGR: No (04/24/2016 12:58:Cecilia Mayers RN) History of Hemorrhage: No (04/24/2016 12:58:Cecilia Mayers RN) History of Loss/Stillborn: No (04/24/2016 12:58:Cecilia Mayers RN) History of : No (04/24/2016 12:58:Cecilia Mayers RN) History of D (Rh) Sensitization: No (04/24/2016 12:58:Cecilia Mayers RN) History Recurrent Loss/Stillborn: No (04/24/2016 12:58:Cecilia Mayers RN) History Depression/PP Depression: No (04/24/2016 12:58:Cecilia Mayers RN) History of Uterine Anomaly/DORIS: No (04/24/2016 12:58:Cecilia Mayers RN) History of Infertility: No (04/24/2016 12:58:Cecilia Mayers RN) History of ART Treatment: No (04/24/2016 12:58:Cecilia Mayers RN) History of DORIS: No (04/24/2016 12:58:Cecilia Mayers RN) Comments Obstetrical History: G1: EAB 2002 G2: 2006 babyboy G3: 2014 babyboy G4: current (04/24/2016 12:58:Cecilia Mayers RN) MEDICAL HISTORY Med Hx Diabetes: Yes (04/24/2016 12:58:Monica Vergara RN) Diabetes Type: Gestational Diabetes (04/24/2016 12:58:Monica Vergara RN) Med Hx Hypertension: No (04/24/2016 12:58:Cecilia Mayers RN) Med Hx Heart Disease: No (04/24/2016 12:58:Cecilia Mayers RN) Med Hx Autoimmune Disorder: No (04/24/2016 12:58:Cecilia Mayers RN) Med Hx Kidney Disease/UTI: No (04/24/2016 12:58:Cecilia Mayesr RN) Med Hx Neurologic/Epilepsy: No (04/24/2016 12:58:Cecilia Mayers RN) Med Hx Psychiatric Disorders: No (04/24/2016 12:58:Cecilia Mayers RN) Med Hx Hepatitis/Liver Disease: No (04/24/2016 12:58:Cecilia Mayers RN) Med Hx Varicosities/Phlebitis: No (04/24/2016 12:58:Cecilia Mayers RN) Med Hx Thyroid Dysfunction: No (04/24/2016 12:58:Cecilia Mayers RN) Med Hx Trauma/Violence: No (04/24/2016 12:58:Cecilia Mayers RN) Med Hx Blood Transfusion: No (04/24/2016 12:58:Cecilia Mayers RN) Med Hx Pulmonary (Asthma,TB): No (04/24/2016 12:58:Cecilia Mayers RN) Med Hx Breast: No (04/24/2016 12:58:Cecilia Mayers RN) Med Hx WILDLIFE REMOVAL SPECIALIST Surgery: No (04/24/2016 12:58:Cecilia Mayers RN) Med Hx Hospitalization/Surgery: Yes (04/24/2016 12:58:Cecilia Mayers RN) Med Hx Anesthetic Complications: No (04/24/2016 12:58:Cecilia Mayers RN) Med Hx Abnormal Pap Smear: No (04/24/2016 12:58:Cecilia Mayers RN) Other Medical Diseases: No (04/24/2016 12:58:Cecilia Mayers RN) Med Hx Significant Family Hx: No (04/24/2016 12:58:Cecilia Mayers RN) Details of Med/Surg Hx: childbirth; GDM on glyburide (04/24/2016 12:58:Monica Vergara RN) INFECTIOUS HISTORY Inf Hx Gonorrhea: No (04/24/2016 12:58:Cecilia Mayers RN) Inf Hx Chlamydia: No (04/24/2016 12:58:Cecilia Mayers RN) Inf Hx Syphilis: No (04/24/2016 12:58:Cecilia Mayers RN) Inf Hx HIV/AIDS: No (04/24/2016 12:58:Cecilia Mayers RN) Inf Hx Human Papilloma Virus: No (04/24/2016 12:58:Cecilia Mayers RN) Inf Hx Pt/Partner Genital Herpes: No (04/24/2016 12:58:Cecilia Mayers RN) Inf Hx Tuberculosis/Exposure: No (04/24/2016 12:58:Cecilia Mayers RN) Inf Hx Hepatitis B,C: No (04/24/2016 12:58:Cecilia Mayers RN) Inf Hx Rash or Viral Illness: No (04/24/2016 12:58:Cecilia Mayers RN) GENETIC HISTORY Gen Hx Age >=35 at MADELINE: No (04/24/2016 12:58:Cecilia Mayers RN) Gen Hx Thalassemia: No (04/24/2016 12:58:Cecilia Mayers RN) Gen Hx Congenital Heart Defect: No (04/24/2016 12:58:Cecilia Mayers RN) Gen Hx Neural Tube Defect: No (04/24/2016 12:58:Cecilia Mayers RN) Gen Hx Down's Syndrome: No (04/24/2016 12:58:Cecilia Mayers RN) Gen Hx Nick-Sachs: No (04/24/2016 12:58:Cecilia Mayers RN) Gen Hx Joyce: No (04/24/2016 12:58:Cecilia Mayers RN) Gen Hx Familial Dysautonomia: No (04/24/2016 12:58:Cecilia Mayers RN) Gen Hx Sickle Cell Disease/Trait: No (04/24/2016 12:58:Cecilia Mayers RN) Gen Hx Hemophilia/Blood Disorder: No (04/24/2016 12:58:Cecilia Mayers RN) Gen Hx Muscular Dystrophy: No (04/24/2016 12:58:Cecilia Mayers RN) Gen Hx Cystic Fibrosis: No (04/24/2016 12:58:Cecilia Mayers RN) Gen Hx [place] Chorea: No (04/24/2016 12:58:Cecilia Mayers RN) Gen Hx Mental Retardation/Autism: No (04/24/2016 12:58:Cecilia Mayers RN) Gen Hx Tested for Fragile X: No (04/24/2016 12:58:Cecilia Mayers RN) Gen Hx Other Inher/Chromosomal: No (04/24/2016 12:58:Cecilia Mayers RN) Gen Hx Maternal Metabolic DO: No (04/24/2016 12:58:Cecilia Mayers RN) Gen Hx Pt Father or FOB Defect: No (04/24/2016 12:58:Cecilia Mayers RN) Gen Hx Other Genetic History: No (04/24/2016 12:58:Cecilia Mayers RN) Gen Hx Drugs/Meds since LMP: No (04/24/2016 12:58:Cecilia Mayers RN)
--- NOTE | 2016-05-28 06:00 | L&D Current Admission ---
Current Admit Datetime Report Generated by CPN: 05/28/2016 06:00 ADMISSION INFORMATION Current Admit Date/Time: 05/26/2016 08:11 (05/26/2016 07:32:Cecilia Mayers RN) Reason for Admission: Induction of Labor (05/26/2016 07:32:Cecilia Mayers RN) Chief Complaint: Scheduled Induction of Labor (Annotations: GDM) (05/26/2016 08:12:Cecilia Mayers RN) Medications During : Oral Antihyperglycemics; Sertraline (Zoloft) (05/26/2016 07:32:Monica Vergara RN) EGA per Dates: 39.1 (05/26/2016 07:32:QS system process) Method of Arrival: Ambulatory (05/26/2016 07:32:Cecilia Mayers RN) Admitted From: Home (05/26/2016 07:32:Cecilia Mayers RN) Reason for Induction: Maternal Diabetes (05/26/2016 07:32:Cecilia Mayers RN) Records Available: Yes (05/26/2016 07:32:Cecilia Mayers RN) General Admission Information: Reviewed (05/26/2016 07:32:Cecilia Mayers RN) General Admission Reviewed By: Tank Vergara RN (05/26/2016 07:32:Monica Vergara RN) BELONGINGS/ADVANCED DIRECTIVES Valuables/Personal Effects: Purse/Wallet; Cell Phone; Jewelry (05/26/2016 07:32:Cecilia Mayers RN) Disposition of Belongings: Kept with Patient (05/26/2016 07:32:Cecilia Mayers RN) Advance Direct for Healthcare: No, and Wants No Information (05/26/2016 07:32:Cecilia Mayers RN) Durable Power of Security Operations Manager: No (05/26/2016 07:32:Cecilia Mayers RN) Living Will: No (05/26/2016 07:32:Cecilia Mayers RN) Organ Donor: Yes (05/26/2016 07:32:Cecilia Mayers RN) Pt Rights Information Given: Yes (05/26/2016 07:32:Cecilia Mayers RN) Pt Understands Pt Rights: Yes (05/26/2016 07:32:Cecilia Mayers RN) LEARNING ASSESSMENT Knowledge Level: Understands L_D Process (05/26/2016 07:32:Cecilia Mayers RN) Barriers to Learning: None (05/26/2016 07:32:Monica Vergara RN) Learning Readiness: Motivated (05/26/2016 07:32:Cecilia Mayers RN) Learns Best By: 1 to 1 Instruction; Reading; Videos; Demonstration (05/26/2016 07:32:Monica Vergara RN) Learning Needs: Labor and Delivery Process; Pain Management; Symptoms to Report; Treatment Plan (05/26/2016 07:32:Monica Vergara RN) DOMESTIC VIOLANCE SCREENING Dom Viol Threatened/Hurt: No (05/26/2016 07:32:Cecilia Mayers RN) Hx of Abuse/Neglect past 2yrs: No (05/26/2016 07:32:Cecilia Mayers RN) Feel Unsafe Going Home: No (05/26/2016 07:32:Cecilia Mayers RN) Addt'l Observ Indicating Abuse: No (05/26/2016 07:32:Cecilia Mayers RN) Reason Unable to Complete Screen: N/A, Screen Completed (05/26/2016 07:32:Cecilia Mayers RN) Considered Personal Harm/Suicide: No (05/26/2016 07:32:Cecilia Mayers RN) NUTRITIONAL/FUNCTIONAL SCREENING Problem with Appetite >5 Days: No (05/26/2016 07:32:Cecilia Mayers RN) Chew/Swallow Difficulties: No (05/26/2016 07:32:Cecilia Mayers RN) Inappropriate Wt Gain/Loss: No (05/26/2016 07:32:Cecilia Mayers RN) Presence Skin Breakdown/Ulcer: No (05/26/2016 07:32:Cecilia Mayers RN) Special Diet: No (05/26/2016 07:32:Cecilia Mayers RN) Pt Requests Operations Analyst Visit: No (05/26/2016 07:32:Cecilia Mayers RN) Hx of Any of the Following?: N/A (05/26/2016 07:32:Cecilia Mayers RN) New Diagnosis of: N/A (05/26/2016 07:32:Cecilia Mayers RN) Requires Assist w/Ambulation: No (05/26/2016 07:32:Cecilia Mayers RN) Uses Assist Device to Ambulate: No (05/26/2016 07:32:Cecilia Mayers RN) Pt Requires Help w/ADL's: No (05/26/2016 07:32:Cecilia Mayers RN)
--- NOTE | 2016-05-28 06:15 | L&D Care Plan ---
LD CARE PLANS Datetime Report Generated by CPN: 05/28/2016 06:15 Datetime: 05/26/2016 08:17 Pain State: Risk For (VILLA Aguilera) Related To: Labor and Delivery Process; Treatment and Procedures (VILLA Aguilera) Goal(s): Patients Pain will be Assessed and Managed; Patient will Verbalize Adequate Relief of Pain or the Ability to [place] with Current Pain (VILLA Aguilera) Interventions: Assess Pain Severity on Scale of 0 (None) to 5 (Severe); Assess Type, Location and Intensity of Pain Each Time Client Reports Discomfort and Notify Provider if Unusal Pain Develops; Encourage Proper Breathing and Relaxation Techniques; Offer Alternatives Such as Repositioning, Calm Environment, Massages, Diversional Activities, Ice Pack, Splinting, and Ambulation; Administer Analgesics as Ordered; Assist with Epidural Placement as Appropriate; Evaluate Therapeutic Effectiveness of Medication and Treatments (VILLA Aguilera) Outcome: Patient will Report Absence or Relief of Pain Consistent with Established Pain Goal (VILLA Aguilera) Outcome: Patient will have a Decrease in Signs and Symptoms of Discomfort (VILLA Aguilera) Outcome: Pain will be Controlled During Procedures (VILLA Aguilera) Anxiety State: Risk For (VILLA Aguilera) Related To: Fear of Unknown; Situational Crisis (VILLA Aguilera) Goal(s): Patient will have Decreased Anxiety and be able to Function at Acceptable Levels (VILLA Aguilera) Interventions: Assess Verbal and Nonverbal Behavioral Indicators of Anxiety; Assist Patient to Identify and Verbalize Symptoms of Anxiety; Identify and Demonstrate Techniques to Control Anxiety; Assist Patient with Coping Mechanisms to Manage Anxiety; Provide Theraputic Touch for the Patient; Explain to Patient, Using a Calm Reassuring Approach and Nonmedical Terms, All Activities, Procedures, and Concerns; Instruct Patient and Family about Post Discharge Care, Limitations, Symptoms to Report and Resources Available (VILLA Aguilera) Outcome: Patient will Identify, Verbalize and Demonstrate Techniques to Control Anxiety (VILLA Aguilera) Outcome: Patient's Posture, Facial Expressions, Gestures and Activity Level will Reflect Decreased Anxiety (VILLA Aguilera) Outcome: Patient will Verbalize a Sense of Control and/or Acceptance of the Situation (VILLA Aguilera) Outcome: Patient will Identify and Utilize Support Person (VILLA Aguilera) Knowledge Deficit State: Not Applicable (VILLA Aguilera) Outcome: Patient and Family will Verbalize Understanding of Condition, Treatment and Signs and Symptoms to Report (VILLA Aguilera) Outcome: Patient will Identify Perceived Learning Needs and Express Motivation to Learn (VILLA Aguilera) Outcome: Patient will Verbalize Understanding of Desired Content, and/or Performs Desired Skill Prior to Discharge (VILLA Aguilera) Infection State: Risk For (VILLA Aguilera) Related To: Surgical Procedures; Prolonged Labor or Induction; Invasive Procedures (VILLA Aguilera) Goal(s): The Patient will be Free of Infection, Vital Signs Stable and Lab Work within Normal Parameters (VILLA Aguilera) Interventions: Instruct and Reinforce Proper Handwashing, Hygiene, and Care Techniques to Patient and Family; Monitor Vital Signs; Monitor Patient for the Following Signs of Infection: Fever, Abdominal Tenderness, Unusual Discharge; Monitor Aminiotic Fluid, Urine and Lochia for Color and Odor; Observe Wounds, Incisions and Invasive Line Sites for Redness, Drainage and Edema; Assess IV Sites per Hospital Policy; Monitor Lab and Test Results and Notify Provider of Abnormal Findings; Assess Nutritional Status and Promote Good Nutrition (VILLA Aguilera) Outcome: Patient will Remain Free of Infection (VILLA Aguilera) Outcome: Infection will be Recognized Early to Allow for Prompt Treatment (VILLA Aguilera) Outcome: Patient will have Vital Signs Within Expected Range (VILLA Aguilera) Fluid Volume State: Not Applicable ([facility]) Injury State: Risk For ([facility]) Impaired Skin Integrity State: Not Applicable (Amy Paul, RNC) Parenting Impaired State: Not Applicable (Amy Paul, RNC) Nutrition State: Not Applicable (Amy Paul, RNC) Grieving State: Not Applicable (Amy Paul, RNC) Additional Care Plan State: Risk For (Monica Vergara RN) Nursing Diagnosis or r/t: (Monica Vergara RN) Goal(s): Patient will breastfeed infant at least 8 times in 24 hours (Monica Vergara RN) Interventions: Support families efforts to breastfeed (Monica Vergara RN) Outcome Status: Ongoing (Monica Vergara RN)
[2016-05-28 07:39] LABS: HEMATOCRIT 27.9 % (36.0-47.0); HEMOGLOBIN 9.4 g/dL (12.0-15.5); HGB HCT DIFFERENCE 0.3; MEAN CORPUSCULAR HEMOGLOBIN 27.5 pg (27.0-33.4); MEAN CORPUSCULAR HGB CONC 33.5 g/dL (32.0-36.0); MEAN CORPUSCULAR VOLUME 82 fl (80-97); RED CELL DISTRIBUTION WIDTH 14.9 % (11.5-14.0); WHITE BLOOD COUNT 12.9 10^3/uL (4.0-10.5)
--- NOTE | 2016-05-28 09:10 | PDOC PROGRESS REPORT ---
Subjective-OB Subjective: Post Delivery Day: 31 year old. Denies any needs at this time Doing well, no c/o, breast feeding, ambulating voiding, scant lochia Physical Exam (OB) Vital Signs: Temp Pulse Resp BP Pulse Ox 97.7 F 85 18 133/81 H 99 05/28/16 07:40 05/28/16 07:40 05/28/16 07:40 05/28/16 07:40 05/28/16 07:40 Intake & Output 05/27/16 05/28/16 05/29/16 06:59 06:59 06:59 Weight 89 kg - PIH/Pre-Eclampsia Clonus: Negative - Lochia Lochia Amount: Scant < 10 ml Lochia Color: Rubra/Red - Abdomen Description: Soft Hernia Present: No Fundal Description: Firm, Midline Fundal Height: u/u - u/2 Objective-Diagnostic Laboratory: 05/28/16 07:19 05/28/16 07:19 WBC 12.9 H RBC 3.40 L Hgb 9.4 L Hct 27.9 L MCV 82 MCH 27.5 MCHC 33.5 RDW 14.9 H Plt Count 279 Assessment and Plan(PN) - Assessment and Plan (1) GBS (group B Streptococcus carrier), +RV culture, currently Is this a current diagnosis for this admission?: Yes (2) Gestational diabetes mellitus Qualifiers: Gestational diabetes mellitus control: oral hypoglycemic-controlled Is this a current diagnosis for this admission?: Yes (3) Anemia Qualifiers: Anemia type: iron deficiency Is this a current diagnosis for this admission?: Yes (4) Normal vaginal delivery Is this a current diagnosis for this admission?: Yes - Time Spent with Patient Time with patient: Less than 15 minutes Medications reviewed and adjusted accordingly: Yes - Disposition Anticipated Discharge: Home Within: within 24 hours
[2016-05-28] MEDS ORDERED: SENNOSIDES/DOCUSATE 8.6-50 MG 1 EACH TABLET PO SCH (10:00)
[2016-05-28] MEDS ORDERED: PRENATAL VITAMIN W-O CA NO5/FE FUMARATE/FA CAPSULE PO SCH (10:00)
[2016-05-28] MEDS: DOCUSATE SODIUM 100 MG CAPSULE PO SCH ×2 (10:01→17:51)
[2016-05-28] MEDS: FERROUS SULFATE 325 MG TABLET PO SCH ×2 (10:01→17:50)
[2016-05-29] MEDS: IBUPROFEN 800 MG TABLET PO SCH (01:36)
[2016-05-29 08:48] VITALS: BP 124/74
--- NOTE | 2016-05-29 11:22 | PDOC DISCHARGE SUMMARY ---
Final Diagnosis Discharge Date: 05/29/16 - Final Diagnosis (1) Gestational diabetes mellitus Is this a current diagnosis for this admission?: Yes (2) Normal vaginal delivery Is this a current diagnosis for this admission?: Yes Discharge Data - Discharge Medication Home Medications: Vit No.129/Iron/FA [ One Daily Tablet] 1 tab PO DAILY 01/30/15 Glyburide 5 mg PO DAILY 04/24/16 Sertraline HCl [Zoloft] 25 mg PO DAILY 04/24/16 Ranitidine HCl 75 mg PO PRN PRN 05/26/16 Reason(s) for Admission: Induction of Labor, Gestional Diabetes Procedures: NST Intrapartum Procedure(s): Spontaneous Vaginal Delivery Complication(s): Laceration-Perineal, Laceration-Periurethral Laceration-Degree: 1st - Diagnosis Test Laboratory: Temp Pulse Resp BP Pulse Ox 98.5 F 79 22 H 124/74 99 05/29/16 10:34 05/29/16 10:34 05/29/16 10:34 05/29/16 10:34 05/29/16 10:34 05/26/16 05/26/16 05/28/16 07:45 08:41 07:19 RBC 3.58 L 3.40 L Hgb 9.7 L 9.4 L Hct 29.3 L 27.9 L Urine Opiates Screen NEGATIVE - Discharge information/Instructions Discharge Activity: Activity As Tolerated, Balance Activity w/Rest, Pelvic Rest Discharge Diet: Regular Disposition: HOME, SELF-CARE Follow up with: [facility] in: 4, Weeks
== END 2016-05-29 13:41 | disposition home or self-care (01) | DRG 775 ==
LOC: LR 07:29 → 2S 05-27 14:33
PROVIDERS: ADMIT Obstetrics & Gynecology; ATTEND Obstetrics & Gynecology
PROC: 4A1HXCZ Monitoring of Products of Conception, Cardiac Rate, External Approach (ICD-10-PCS; 2016-05-26)
PROC: 10E0XZZ Delivery of Products of Conception, External Approach (ICD-10-PCS; principal; 2016-05-27)
PROC: 0UQMXZZ Repair Vulva, External Approach (ICD-10-PCS; 2016-05-27)
PROC: 0HQ9XZZ Repair Perineum Skin, External Approach (ICD-10-PCS; 2016-05-27)
PROC: 3E0P7GC Introduction of Other Therapeutic Substance into Female Reproductive, Via Natural or Artificial Opening (ICD-10-PCS; 2016-05-27)
PROC: 10907ZC Drainage of Amniotic Fluid, Therapeutic from Products of Conception, Via Natural or Artificial Opening (ICD-10-PCS; 2016-05-27)
DX: O24.425 Gestational diabetes mellitus in childbirth, controlled by oral hypoglycemic drugs (principal); O70.0 First degree perineal laceration during delivery; O99.824 Streptococcus B carrier state complicating childbirth; O99.02 Anemia complicating childbirth; D50.9 Iron deficiency anemia, unspecified; O71.82 Other specified trauma to perineum and vulva; O69.81X0 Labor and delivery complicated by cord around neck, without compression, not applicable or unspecified; Z16.29 Resistance to other single specified antibiotic; Z88.1 Allergy status to other antibiotic agents; Z3A.39 39 weeks gestation of pregnancy; Z37.0 Single live birth
CPT/HCPCS: 36415; 80307; 81005; 85025; 85027; 86592; 86850; 86900; 86901; 94760; J2370; J2590; J3010; J3370; J3490

== ENCOUNTER 2016-10-07 18:56 | Emergency (ER) | payer SELFPAY ==
[2016-10-07] MEDS ORDERED: OXYCODONE-ACETAMINOPHEN 5-325 MG TABLET PO ONE (19:33)
--- NOTE | 2016-10-07 19:35 | ER Document Report ---
HPI - HPI Patient complains to provider of: left ankle injury Pain Level: 3 Context: 31 yo female c/o pain to left ankle. stepped in hole, twisted ankle Associated Symptoms: None Exacerbated by: Movement, Walking Relieved by: Denies Similar symptoms previously: No Recently seen / treated by doctor: No - ROS Systems Reviewed and Negative: Yes All other systems reviewed and negative - CARDIOVASCULAR Cardiovascular: DENIES: Chest pain - REPRODUCTIVE Reproductive: REPORTS: : - DERM Skin Color: Normal Past Medical History - General Information source: Patient - Social History Smoking Status: Never Smoker Chew tobacco use (# tins/day): No Frequency of alcohol use: None Drug Abuse: Marijuana Family History: Thyroid Disfunction - Medical History Medical History: Negative Renal/ Medical History: Denies: Hx Peritoneal Dialysis Past Surgical History: Reports: Hx Myringotomy, Hx Oral Surgery - [place] teeth - Immunizations Hx Diphtheria, Pertussis, Tetanus Vaccination: Yes - 2014 Vertical Provider Document - CONSTITUTIONAL Agree With Documented VS: Yes Exam Limitations: No Limitations General Appearance: WD/WN - INFECTION CONTROL TRAVEL OUTSIDE OF THE [place] IN LAST 30 DAYS: No - HEENT HEENT: Atraumatic, PERRLA - NECK Neck: Normal Inspection, Supple - RESPIRATORY Respiratory: Breath Sounds Normal, No Respiratory Distress O2 Sat by Pulse Oximetry: 100 - CARDIOVASCULAR Cardiovascular: Regular Rate, Regular Rhythm - MUSCULOSKELETAL/EXTREMETIES Musculoskeletal/Extremeties: Tender - left lateral malleolus swollen, tender, Edema, Eccymosis - NEURO Level of Consciousness: Awake, Alert, Appropriate Course - Vital Signs Vital signs: Temp Pulse Resp BP Pulse Ox 99.0 F 124 H 16 134/87 H 100 10/07/16 19:01 10/07/16 19:01 10/07/16 19:01 10/07/16 19:01 10/07/16 19:01 Procedures - Immobilization left ankle Pre-Proc Neuro Vasc Exam: Normal Immobilizer type: Ankle stirrup Performed by: PCT Post-Proc Neuro Vasc Exam: Normal Alignment checked and good: Yes Discharge - Discharge Clinical Impression: Left ankle sprain Qualifiers: Encounter type: initial encounter Involved ligament of ankle: unspecified ligament Qualified Code(s): S93.402A - Sprain of unspecified ligament of left ankle, initial encounter Condition: Stable Disposition: HOME, SELF-CARE Instructions: Ice Packs ([facility]), Sprained Ankle ([facility]), Ankle Stirrup Splint ([facility]) , Use of Crutches ([facility]) Additional Instructions: Your xray is negative for fracture wear splint for comfort use crutches until able to bear weight without pain ice and elevate foot follow up with primary care if pain persists more than 10 days Prescriptions: Ibuprofen [Motrin 800 Mg Tablet] 800 mg PO Q6H #20 tablet Oxycodone HCl/Acetaminophen [Percocet 5-325 mg Tablet] 1 - 2 tab PO ASDIR PRN # 15 tablet PRN Reason:
--- NOTE | 2016-10-07 20:17 | RADIOLOGY REPORT (SQ) ---
EXAM DESCRIPTION: ANKLE LEFT COMPLETE COMPLETED DATE/TIME: 10/07/2016 7:59 pm REASON FOR STUDY: fell in hole, twisted ankle COMPARISON: None. NUMBER OF VIEWS: Three views. TECHNIQUE: AP, lateral, and oblique radiographic images acquired of the left ankle. LIMITATIONS: None. FINDINGS: MINERALIZATION: Normal. BONES: No acute fracture or dislocation. No worrisome bone lesions. JOINTS: No effusions. SOFT TISSUES: Mild soft tissue swelling is identified. No radiopaque foreign body is identified. OTHER: No other significant finding. IMPRESSION: NO RADIOGRAPHIC EVIDENCE OF ACUTE INJURY. TECHNICAL DOCUMENTATION: JOB ID: [id number] [employer]- All Rights Reserved
[2016-10-07 20:46] VITALS: BP 125/74
== END 2016-10-07 20:46 | disposition home or self-care (01) ==
LOC: ER 18:56
DX: O9A.219 Injury, poisoning and certain other consequences of external causes complicating pregnancy, unspecified trimester (principal); S93.402A Sprain of unspecified ligament of left ankle, initial encounter; X50.1XXA Overexertion from prolonged static or awkward postures, initial encounter; Z3A.00 Weeks of gestation of pregnancy not specified
CPT/HCPCS: 99283; 73610; L4350

== ENCOUNTER 2017-07-01 08:54 | Emergency (ER) | payer SELFPAY ==
--- NOTE | 2017-07-01 09:23 | ER Document Report ---
ED Medical Screen (RME) - General Chief Complaint: Cough Stated Complaint: COUGH Time Seen by Provider: 07/01/17 09:11 Mode of Arrival: Ambulatory Information source: Patient Notes: Patient is a 32 year old female that presents to the emergency department today with complaints of a cough with associated chest pain which began last night. Patient states in November of 2013 she was seen with similar symptoms and was found to have an elevated troponin and was found to have "left ventrical enlargement" after being transferred to [facility]. Patient denies any shortness of breath, fevers, or history of CHF. TRAVEL OUTSIDE OF THE [place] IN LAST 30 DAYS: No - Related Data Allergies/Adverse Reactions: amoxicillin [Amoxicillin] Allergy (Severe, Verified 01/14/17 08:42) Anaphylaxis Past Medical History - General Information source: Patient - Social History Cigarette use (# per day): No Chew tobacco use (# tins/day): No Frequency of alcohol use: None Drug Abuse: None Lives with: Family Family history: Reviewed & Not Pertinent - Past Medical History Cardiac Medical History: Reports: Other - Hx of elevated troponin 11/2013 Renal/ Medical History: Denies: Hx Peritoneal Dialysis Past Surgical History: Reports: Hx Myringotomy, Hx Oral Surgery - [place] teeth - Immunizations Hx Diphtheria, Pertussis, Tetanus Vaccination: Yes - 2014 Review of Systems - Review of Systems Constitutional: denies: Fever EENT: No symptoms reported Cardiovascular: See HPI, Chest pain Respiratory: See HPI, Cough. denies: Short of breath Gastrointestinal: No symptoms reported Genitourinary: No symptoms reported Female Genitourinary: No symptoms reported Musculoskeletal: No symptoms reported Skin: No symptoms reported Hematologic/Lymphatic: No symptoms reported Neurological/Psychological: No symptoms reported -: Yes All other systems reviewed and negative Physical Exam - Vital signs Vitals: Temp Pulse Resp BP Pulse Ox 98.5 F 98 17 140/78 H 100 07/01/17 09:00 07/01/17 09:00 07/01/17 09:00 07/01/17 09:00 07/01/17 09:00 - General General appearance: Appears well, Alert In distress: None - HEENT Head: Normocephalic, Atraumatic Eyes: Normal Conjunctiva: Normal - Respiratory Respiratory status: No respiratory distress Chest status: Nontender Breath sounds: Normal - Cardiovascular Rhythm: Regular Heart sounds: Normal auscultation Murmur: No - Skin Skin Temperature: Warm Skin Moisture: Dry Skin Color: Normal Course - Vital Signs Vital signs: Temp Pulse Resp BP Pulse Ox 98.5 F 98 17 140/78 H 100 07/01/17 09:00 07/01/17 09:00 07/01/17 09:00 07/01/17 09:00 07/01/17 09:55 Scribe Documentation - Scribe Written by Clara:: Clara Guzman, 07/01/2017 0957 acting as scribe for :: Jaciel
--- NOTE | 2017-07-01 09:50 | RADIOLOGY REPORT (SQ) ---
EXAM DESCRIPTION: CHEST 2 VIEWS COMPLETED DATE/TIME: 07/01/2017 9:33 am REASON FOR STUDY: cough, chest discomfort COMPARISON: 01/14/2017 EXAM PARAMETERS: NUMBER OF VIEWS: two views TECHNIQUE: Digital Frontal and Lateral radiographic views of the chest acquired. RADIATION DOSE: NA LIMITATIONS: none FINDINGS: LUNGS AND PLEURA: No opacities, masses or pneumothorax. No pleural effusion. MEDIASTINUM AND HILAR STRUCTURES: No masses or contour abnormalities. HEART AND VASCULAR STRUCTURES: Heart normal size. No evidence for failure. BONES: No acute findings. HARDWARE: None in the chest. OTHER: No other significant finding. IMPRESSION: NO ACUTE RADIOGRAPHIC FINDING IN THE CHEST. TECHNICAL DOCUMENTATION: JOB ID: [id number] [employer]- All Rights Reserved Reading location - IP/workstation name: [email or web address]
[2017-07-01 10:16] LABS: ABSOLUTE BASOPHILS # (AUTO) 0.1 10^3/uL (0.0-0.2); ABSOLUTE EOSINOPHILS # (AUTO) 0.2 10^3/uL (0.0-0.6); ABSOLUTE LYMPHOCYTES (AUTO) 2.8 10^3/uL (0.5-4.7); ABSOLUTE MONOCYTES (AUTO) 0.5 10^3/uL (0.1-1.4); ABSOLUTE NEUT (AUTO) 6.2 10^3/uL (1.7-8.2); BASOPHILS % (AUTO) 0.6 % (0-2); EOSINOPHILS % (AUTO) 2.2 % (0-6); HEMATOCRIT 35.5 % (36.0-47.0); HEMOGLOBIN 11.6 g/dL (12.0-15.5); LYMPHOCYTES % (AUTO) 28.5 % (13-45); MEAN CORPUSCULAR HEMOGLOBIN 25.5 pg (27.0-33.4); MEAN CORPUSCULAR HGB CONC 32.7 g/dL (32.0-36.0); MEAN CORPUSCULAR VOLUME 78 fl (80-97); MONOCYTES % (AUTO) 5.6 % (3-13); PLATELET COUNT 386 10^3/uL (150-450); RED BLOOD COUNT 4.55 10^6/uL (3.72-5.28); RED CELL DISTRIBUTION WIDTH 14.4 % (11.5-14.0); SEGMENTED NEUTROPHILS % (AUTO) 63.1 % (42-78); TOTAL CELLS COUNTED % (AUTO) 100 %; WHITE BLOOD COUNT 9.7 10^3/uL (4.0-10.5)
--- NOTE | 2017-07-01 10:27 | ER Document Report ---
ED General - General Chief Complaint: Cough Stated Complaint: COUGH Time Seen by Provider: 07/01/17 09:11 Mode of Arrival: Ambulatory Notes: Patient is here to be evaluated for pains in the left chest as well as a cough. She says she started having the cough last Wednesday or Wednesday. It has been productive. Has not had any fever, however. She noted the beginning of left upper anterior chest pains last night. These pains go into her left upper back region. She feels a little bit short of breath. She is noted no injuries other than coughing so much during the past 5 days. She notes that the pain is worse with a deep breath and with coughing and is less if she lays very still and does not move. Patient has had a similar pain to this 3 years ago and was seen here and found to have an elevated troponin level and was transferred to [facility]. She did not have a catheterization at that time, but did have an echo study and they told her they thought she had enlargement of the heart muscle. She had had a prior upper respiratory infection during the weeks prior to that happening. Patient has no other significant past medical history. She has had no further problems with her heart or similar episodes to that 1 3 years ago. Patient says that both of her "babies" who are 1 and 2 years old have had bacterial pinkeye and cough and congestion. LMP 4/5 TRAVEL OUTSIDE OF THE [place] IN LAST 30 DAYS: No - Related Data Allergies/Adverse Reactions: amoxicillin [Amoxicillin] Allergy (Severe, Verified 01/14/17 08:42) Anaphylaxis Past Medical History - General Information source: Patient - Social History Smoking Status: Never Smoker Cigarette use (# per day): No Chew tobacco use (# tins/day): No Frequency of alcohol use: None Drug Abuse: None Lives with: Family Family History: Reviewed & Not Pertinent, Thyroid Disfunction Patient has suicidal ideation: No Patient has homicidal ideation: No - Past Medical History Cardiac Medical History: Reports: Other - Hx of elevated troponin 11/2013 Endocrine Medical History: Denies: Hx Diabetes Mellitus Type 2 Past Surgical History: Reports: Hx Myringotomy, Hx Oral Surgery - [place] teeth - Immunizations Hx Diphtheria, Pertussis, Tetanus Vaccination: Yes - 2014 Review of Systems - Review of Systems Notes: REVIEW OF SYSTEMS: CONSTITUTIONAL : Denies fever. EENT: Denies eye, ear, nose or mouth or throat pain or other symptoms. CARDIOVASCULAR: See HPI. RESPIRATORY: See HPI. GASTROINTESTINAL: Denies abdominal pain or nausea, vomiting, or diarrhea. GENITOURINARY: Denies difficulty or painful urinating, urinary frequency, blood in urine. MUSCULOSKELETAL: Denies back or neck pain. Denies joint pain or swelling. No swelling or pain of either leg. SKIN: Denies rash or skin lesions. NEUROLOGICAL: Denies LOC or altered mental status. Denies headache. Denies sensory loss or motor deficits. ALL OTHER SYSTEMS REVIEWED AND NEGATIVE. Physical Exam - Vital signs Vitals: Temp Pulse Resp BP Pulse Ox 98.5 F 98 17 140/78 H 100 07/01/17 09:00 07/01/17 09:00 07/01/17 09:00 07/01/17 09:00 07/01/17 09:00 Interpretation: Normal - Notes Notes: PHYSICAL EXAMINATION: GENERAL: Well-appearing, in no acute distress. Anxious. Vital signs are all normal. No tachycardia. Occasional cough. HEAD: Atraumatic, normocephalic. EYES: Pupils equal round and reactive to light, extraocular movements intact. ENT: oropharynx clear without exudates. Moist mucous membranes. NECK: Normal range of motion, supple. LUNGS: Breath sounds clear and equal bilaterally. HEART: Regular rate and rhythm without murmurs. No rubs heard. ABDOMEN: Soft, nontender. No guarding or rebound. No masses. BACK: No tenderness throughout entire back. EXTREMITIES: Normal range of motion without pain. Negative Homans bilaterally. NEUROLOGICAL: Normal speech, normal gait. Normal sensory, motor, and reflex exams. Awake, alert, and oriented x3. Cranial nerves normal. PSYCH: Normal mood, normal affect. SKIN: Warm, dry, no rashes. Course - Vital Signs Vital signs: Temp Pulse Resp BP Pulse Ox 98.5 F 98 13 123/78 100 07/01/17 09:00 07/01/17 09:00 07/01/17 11:01 07/01/17 11:01 07/01/17 11:01 - Laboratory Result Diagrams: 07/01/17 09:40 07/01/17 09:40 Laboratory results interpreted by me: 07/01/17 09:40 Hgb 11.6 L Hct 35.5 L MCV 78 L MCH 25.5 L RDW 14.4 H - Diagnostic Test Radiology results interpreted by me: 07/01/17 10:29 Chest x-ray is normal. - EKG Interpretation by Me EKG shows normal: Sinus rhythm Rate: Normal Rhythm: NSR When compared to previous EKG there are: No significant change Additional EKG results interpreted by me: 07/01/17 10:29 EKG is essentially normal but for some minor nonspecific ST changes. Discharge - Discharge Clinical Impression: Chest wall pain, URI (upper respiratory infection) Condition: Stable Disposition: HOME, SELF-CARE Additional Instructions: UPPER RESPIRATORY ILLNESS: You have a viral infection of the respiratory passages -- a "cold." This common infection causes nasal congestion, drainage, and often sore throat and cough. It is highly contagious. The disease usually lasts about 10 to 14 days. There is no "cure" for the viral infection -- it must run its course. If there is a complication, such as bacterial infection in the nose, sinuses, middle ear, or bronchial tubes, antibiotics may be required. The antibiotics won't affect the virus. Drink plenty of fluids. A humidifier may help. An expectorant medication or decongestant may make you more comfortable. Use acetaminophen or ibuprofen for fever or aches. See the doctor if fever persists over two days, if there is any significant worsening of your symptoms, or if you simply fail to improve as expected. CHEST PAIN OF UNCLEAR CAUSE: The exact cause of your chest pain isn't clear. Fortunately, there is no evidence of a dangerous medical condition. Further testing may be required to find the source of the pain. Most often, we find that this pain is coming from the chest wall -- the muscles or rib joints in the chest. But chest pain can come from the lung and lung lining, the esophagus, the heart valves or heart lining, and even the stomach or gallbladder. Rest. Eat lightly until the pain is gone. We may prescribe medicine for pain and inflammation. You should call the physician immediately if the pain radiates to the shoulder, jaw or arms; if you start to run a fever or develop a cough; or if you develop shortness of breath, or other new or alarming symptoms. NORMAL EXAM AND WORKUP: At this time, your examination and workup show no significant abnormality. No significant abnormal physical findings were noted. All laboratory, EKG, and imaging (x-ray, CT scans, ultrasound) studies that were ordered show no significant abnormality. Although your examination and all studies that were ordered showed no significant abnormal finding, there are no examinations and no studies that are 100% accurate. There is always the possibility that some abnormality could exist and not be detected with physical examination or within the limits and capabilities of laboratory and other studies. You should return or follow up as you were instructed on your visit today for further evaluation if your symptoms do not resolve. CHEST WALL PAIN: Your chest pain may be coming from the chest wall. This is often caused by straining the muscles or joints in the chest during physical activity, direct trauma, coughing, or vigorous vomiting. Persons with arthritis are especially prone to this type of pain, due to inflammation of the cartilage joints near the breast bone. Occasionally, no cause can be found. Rest from strenuous physical activity. This kind of chest pain is usually made worse by movement of the chest. Depending on the symptoms, we may prescribe medicine for pain, muscle relaxation, and antiinflammatory effects. If the pain is new, and seems to be due to muscle strain, cold packs can help. Otherwise, apply gentle warmth to the painful area for 15 minutes every hour or two. You should call contact the doctor immediately if things change. Further evaluation is needed if you develop a fever or cough, if the nature of the pain changes, or if you become short of breath. ORAL NARCOTIC MEDICATION: You have been given a prescription for pain control. This medication is a narcotic. It's best taken with food, as nausea can result if taken on an empty stomach. Don't operate machinery or drive within six hours of taking this medication. Do not combine this medicine with alcohol, or with any medication which can cause sedation (such as cold tablets or sleeping pills) unless you get permission from the physician. Narcotics tend to cause constipation. If possible, drink plenty of fluids and eat a diet high in fiber and fruits. COUGH-SUPPRESSANT & EXPECTORANT MEDICATION: You are to use a cough medication as needed for relief of symptoms. This medicine is a combination of an expectorant (to make the mucous thinner and more easily "coughed up") and a cough suppressant (to reduce the frequency of coughing). The cough-suppressant medicine is related to narcotics. You may experience mild nausea and sleepiness. Some patients who are very sensitive to narcotics may have stomach pain from this medicine. Taking the medicine with food reduces these side effects. Do not drive or work with machinery until you know how this medicine affects you. The expectorant should have no side effects. Iodine-containing expectorants (such as organidin) should not be taken by persons with active thyroid disease unless approved by your doctor. Call the doctor if you develop shortness of breath, hives, rash, itching, lightheadedness, or severe nausea and vomiting. USE OF ACETAMINOPHEN (Tylenol): Acetaminophen may be taken for pain relief or fever control. It's much safer than aspirin, offering a wider range of "safe" dosages. It is safe during . Some brand names are Tylenol, Panadol, Datril, Anacin 3, Tempra, and Liquiprin. Acetaminophen can be repeated every four hours. The following are maximum recommended dosages: >89 pounds or adults 650 mg to 900 mg Acetaminophen can be repeated every four hours. Maximum dose not to exceed 4000 mg a day. FOLLOW-UP CARE: If you have been referred to a physician for follow-up care, call the physician s office for an appointment as you were instructed or within the next two days. If you experience worsening or a significant change in your symptoms, notify the physician immediately or return to the Emergency Department at any time for re-evaluation. Prescriptions: Hydrocodone/Acetaminophen [[place] 5-325 Tablet] 1 each PO Q4HP PRN #10 tablet PRN Reason:
[2017-07-01 10:30] LABS: ALANINE AMINOTRANSFERASE 32 U/L (9-52); ALBUMIN 4.6 g/dL (3.5-5.0); ALKALINE PHOSPHATASE 83 U/L (38-126); ANION GAP 13 (5-19); ASPARTATE AMINO TRANSFERASE 25 U/L (14-36); BILIRUBIN,DIRECT 0.2 mg/dL (0.0-0.4); BILIRUBIN,TOTAL 0.4 mg/dL (0.2-1.3); BLOOD UREA NITROGEN 12 mg/dL (7-20); CALCIUM 9.8 mg/dL (8.4-10.2); CARBON DIOXIDE 28 mmol/L (22-30); CHLORIDE 103 mmol/L (98-107); GLUCOSE 108 mg/dL (75-110); POTASSIUM 4.5 mmol/L (3.6-5.0); SODIUM 144.3 mmol/L (137-145); TOTAL PROTEIN 7.5 g/dL (6.3-8.2)
[2017-07-01 10:43] LABS: NT PRO BNP 16 pg/mL (<125)
[2017-07-01 10:44] LABS: TROPONIN I < 0.012 ng/mL
[2017-07-01 11:23] VITALS: BP 123/78
--- NOTE | 2017-07-01 23:20 | EKG REPORT ---
SEVERITY:- BORDERLINE ECG - SINUS RHYTHM PROBABLE LEFT ATRIAL ABNORMALITY : Confirmed by: Mendoza [place] 01-Jul-2017 23:20:06
== END 2017-07-01 11:45 | disposition home or self-care (01) ==
LOC: ER 08:54
DX: J06.9 Acute upper respiratory infection, unspecified (principal); R07.89 Other chest pain; M54.89 Other dorsalgia; Z88.0 Allergy status to penicillin
CPT/HCPCS: 36415; 71046; 80053; 83735; 83880; 84484; 84703; 85025; 93005; 93010; 99284

== ENCOUNTER 2017-10-04 07:36 | Emergency (ER) | payer SELFPAY ==
[2017-10-04 07:44] VITALS: BP 147/85
[2017-10-04] MEDS ORDERED: DEXAMETHASONE 4 MG TABLET PO ONE (08:03)
--- NOTE | 2017-10-04 08:09 | ER Document Report ---
HPI - HPI Patient complains to provider of: Sore throat and cough Onset: Other - 5 days Onset/Duration: Gradual, Worse Pain Level: 3 Context: 32-year-old non-smoker with sore throat, right ear pain, and congested cough over the past 5 days. The symptoms are getting worse. It hurts to swallow. Allergic to amoxicillin. Associated Symptoms: None Exacerbated by: Other - Swallowing and coughing Relieved by: Denies - ROS ROS below otherwise negative: Yes Systems Reviewed and Negative: Yes All other systems reviewed and negative - CONSTITUTIONAL Constitutional: DENIES: Fever, Chills - EENT EENT: REPORTS: Sore Throat, Ear Pain - right - RESPIRATORY Respiratory: REPORTS: Coughing Past Medical History - General Information source: Patient - Social History Smoking Status: Never Smoker Chew tobacco use (# tins/day): No Frequency of alcohol use: Rare Drug Abuse: None Lives with: Family Family History: Reviewed & Not Pertinent, Thyroid Disfunction Patient has suicidal ideation: No Patient has homicidal ideation: No Renal/ Medical History: Denies: Hx Peritoneal Dialysis Past Surgical History: Reports: Hx Myringotomy, Hx Oral Surgery - [place] teeth - Immunizations Hx Diphtheria, Pertussis, Tetanus Vaccination: Yes - 2014 Vertical Provider Document - CONSTITUTIONAL Agree With Documented VS: Yes Exam Limitations: No Limitations General Appearance: No Apparent Distress - INFECTION CONTROL TRAVEL OUTSIDE OF THE [place] IN LAST 30 DAYS: No - HEENT HEENT: Normocephalic, Pharyngeal Erythema. negative: Conjuctival Injection, Tympanic Membrane Red, Tympanic Membrane Bulging Notes: Large bilateral tonsils no signs of abscess and uvula is midline. - NECK Neck: Supple, Lymphadenopathy-Left - Anterior, Lymphadenopathy-Right - Anterior - RESPIRATORY Respiratory: Breath Sounds Normal, No Respiratory Distress - CARDIOVASCULAR Cardiovascular: Regular Rate, Regular Rhythm - NEURO Level of Consciousness: Alert - DERM Integumentary: No Rash Course - Vital Signs Vital signs: Temp Pulse Resp BP Pulse Ox 98.6 F 95 18 147/85 H 100 10/04/17 07:42 10/04/17 07:42 10/04/17 07:42 10/04/17 07:42 10/04/17 07:42 Discharge - Discharge Clinical Impression: Bronchitis Pharyngitis Qualifiers: Pharyngitis/tonsillitis etiology: other specified organisms Qualified Code(s): J02.8 - Acute pharyngitis due to other specified organisms Condition: Good Disposition: HOME, SELF-CARE Instructions: Sore Throat ([facility]), Bronchitis ([facility]), Tessalon Perles ([facility]), Azithromycin ([facility]) Additional Instructions: plenty of fluids rest cool mist humidifier at night, wash it daily tessalon perles to reduce the cough to er if worsening symptoms Prescriptions: Azithromycin [Zithromax] 250 mg PO DAILY #6 tablet Benzonatate [Tessalon Perles 100 mg Capsule] 100 mg PO ASDIR PRN #40 capsule PRN Reason: Referrals: HAYLEY DOWNEY [employer] TECHNICIAN [[employer] BASED STAFF] - Follow up as needed
== END 2017-10-04 08:16 | disposition home or self-care (01) ==
LOC: ER 07:36
DX: J02.9 Acute pharyngitis, unspecified (principal); J40 Bronchitis, not specified as acute or chronic; H92.01 Otalgia, right ear; R59.0 Localized enlarged lymph nodes; R05 Cough; Z88.0 Allergy status to penicillin
CPT/HCPCS: 99282

== ENCOUNTER 2019-01-05 08:58 | Day surgery (SDC) | payer BC ==
[2019-01-03 11:34] LABS: HEMATOCRIT 37.6 % (36.0-47.0); HEMOGLOBIN 12.3 g/dL (12.0-15.5); MEAN CORPUSCULAR HEMOGLOBIN 25.7 pg (27.0-33.4); MEAN CORPUSCULAR HGB CONC 32.8 g/dL (32.0-36.0); MEAN CORPUSCULAR VOLUME 78 fl (80-97); PLATELET COUNT 367 10^3/uL (150-450); RED BLOOD COUNT 4.81 10^6/uL (3.72-5.28); RED CELL DISTRIBUTION WIDTH 14.7 % (11.5-14.0)
[2019-01-03 11:36] LABS: APPEARANCE,URINE CLEAR; BILIRUBIN,URINE NEGATIVE (NEGATIVE); COLOR,URINE YELLOW; GLUCOSE, URINE NEGATIVE (NEGATIVE); KETONES,URINE NEGATIVE (NEGATIVE); LEUKOCYTE ESTERASE,URINE NEGATIVE (NEGATIVE); NITRITE,URINE NEGATIVE (NEGATIVE); PROTEIN,URINE NEGATIVE (NEGATIVE); URINE SPECIFIC GRAVITY 1.016; UROBILINOGEN,URINE NEGATIVE mg/dL (<2.0)
[~2019-01-05 08:58] MED LIST: LACTATED RINGERS 1000 ML IV PRN; LIDOCAINE 0.5% INJ-PF (5 MG/ML) 50 ML SDV SUBCUT PRN
[2019-01-05] MEDS ORDERED: FENTANYL CITRATE INJ/PF 100 MCG/2 ML AMPUL ONE (09:07)
[2019-01-05] MEDS ORDERED: PROPOFOL INJ 200 MG/20 ML VIAL IV ONE (09:08)
[2019-01-05] MEDS ORDERED: MIDAZOLAM 2 MG/2 ML INJ ONE (09:08)
[2019-01-05] MEDS ORDERED: ONDANSETRON HCL INJ/PF 4 MG/2 ML SDV ONE (10:36)
[2019-01-05] MEDS ORDERED: SUCCINYLCHOLINE CHLORIDE INJ 200 MG/10 ML VIAL ONE (10:36)
[2019-01-05] MEDS ORDERED: KETOROLAC TROMETHAMINE 60 MG/2 ML SDV ONE (10:36)
[2019-01-05] MEDS ORDERED: DEXAMETHASONE SOD PHOSPHATE INJ 4 MG/1 ML VIAL ONE (10:36)
[2019-01-05] MEDS ORDERED: MORPHINE SULFATE 10 MG/ML INJ IV PRN (12:36)
[2019-01-05] MEDS ORDERED: OXYCODONE-ACETAMINOPHEN 5-325 MG TABLET PO PRN ×4 (12:36→14:01)
[2019-01-05] MEDS ORDERED: PROMETHAZINE HCL INJ 25 MG/1 ML VIAL IV PRN (12:36)
[2019-01-05] MEDS ORDERED: FENTANYL CITRATE INJ/PF 100 MCG/2 ML AMPUL IV PRN ×3 (12:36)
[2019-01-05] MEDS ORDERED: MEPERIDINE HCL/PF INJ 25 MG/1 ML DISP.SYRIN IV PRN (12:36)
[2019-01-05] MEDS ORDERED: DIPHENHYDRAMINE HCL 50 MG/ML VIAL IV PRN (12:36)
[2019-01-05] MEDS ORDERED: ONDANSETRON HCL INJ/PF 4 MG/2 ML SDV IV PRN (12:36)
[2019-01-05] MEDS ORDERED: MORPHINE SULFATE 10 MG/ML INJ IM PRN (13:58)
[2019-01-05] MEDS ORDERED: IBUPROFEN 800 MG TABLET PO PRN (13:59)
[2019-01-05] MEDS ORDERED: OXYCODONE-ACETAMINOPHEN 5-325 MG TABLET ONE (14:21)
[2019-01-05 15:53] VITALS: BP 128/85
--- NOTE | 2019-01-05 16:53 | Operative Report ---
Operative Report DATE OF SURGERY: 01/05/19 PREOPERATIVE DIAGNOSIS: Undesired fertility POSTOPERATIVE DIAGNOSIS: Same OPERATION: laparoscopic tubal cauterization SURGEON: GIOVANNI BREWER ANESTHESIA: GA COMPLICATIONS: None ESTIMATED BLOOD LOSS: 20 INTRAOPERATIVE FINDINGS: Uterus tubes and ovaries PROCEDURE: Patient was taken to the operating room prepared and draped in normal sterile fashion in a dorsal lithotomy position. Under sterile conditions and in and out cath was performed of approximately 150 cc of clear urine. Sterile speculum was placed into the vagina cervix was grasped on the anterior lip with a single- tooth tenaculum Hulka clamp was placed through the cervix for uterine manipulation without difficulty. The lumen tenaculum were removed. As were changed and attention was turned to the upper portion of the case where a 5 mm skin incision was made at the umbilicus and the varies needle was introduced through this incision. Verification of peritoneal cavity placement was made using free flow of sterile water through the varies needle. The abdomen was then inflated with approximately 2 L of CO2 gas with an opening pressure of less than 5 mmHg. The varies needle was removed and a 5 mm port was placed in this incision. The camera was introduced through the 5 mm port and the patient was placed in Trendelenburg with the above findings noted. The 5 mm port was placed in the left lower quadrant under direct visualization without difficulty. Blunt probe was introduced and the bowel was swept away. The probe was removed and the Kleppinger was introduced through the lower incision beginning with the left fallopian tube it was cauterized with approximately 3-1/2 cm of complete cau franko. There was cautery maintained until complete occlusion was felt to be adequate. Repeated on the right fallopian tube without difficulty. Once occlusion was come was felt to be complete the lower port was removed under direct visualization with a Kleppinger and good hemostasis was noted. Camera was removed and the abdomen was deflated through the umbilical port, port was removed both skin incisions were closed using 4-0 Vicryl. Patient tolerated procedure well sponge lap and needle counts were correct x2 and the patient was taken to recovery in stable condition.
== END 2019-01-05 15:20 | disposition home or self-care (01) ==
LOC: OROUT 08:58
PROVIDERS: ATTEND Obstetrics & Gynecology
DX: Z30.2 Encounter for sterilization (principal)
CPT/HCPCS: 36415; 85027; 81005; 81025; 58670; J2250; J1100; J1885; J3010; J0330; J2405; J2704; 851

== ENCOUNTER → 2019-09-01 | Outpatient (CLI) | payer BC ==
[2019-09-01 11:01] VITALS: BP 123/61
--- NOTE | 2019-09-01 11:01 | ER RDC ASSESSMENT REPORT ---
Intake - In the Last 14 days Have you traveled outside [place]?: No Have you been in close contact with someone CONFIRMED: No - Symptoms Subjective Fever(Superior feverish): No Chills: Yes Muscule Aches: Yes Runny Nose: No Sore Throat: No Cough (New or worsening chronic cough): Yes --How many day(s)?: Dry cough Shortness of breath: Yes Nausea or Vomiting: Yes Headache: Yes Abdominal Pain: No Diarrhea(3 or more loose stools in last 24 hours): Yes - Do you have any of the following Chronic lung disease: Asthma or emphysema or COPD: No Cystic Fibrosis: No Diabetes: No High Blood Pressure: No Cardiovascular Disease: No Chronic Kidney Disease: No Chronic Liver Disease: No Chronic blood disorder like Sickle Cell Disease: No Weak immune system due to disease or medication: No Neurologic condition that limits movement: No Developmental delay - Moderate to Severe: No Recent (within past 2 weeks) or current : No Morbid Obesity (>100 pounds over ideal weight): No Obesity Comment: Height 5 feet 5 inches weight 215 pounds - Objective Temperature: 97.1 F Pulse Rate: 83 Respiratory Rate: 20 Blood Pressure: 123/61 O2 Sat by Pulse Oximetry: 98 Objective: Given above, testing performed: If Testing Performed: Test Specimen Type Sent to General - General Information source: Patient Notes: Patient here at [facility] for COVID testing has started feeling this ill on Wednesday, 26 August has had cough chills muscle aches shortness of breath and nausea headache it was not until daily her 3-year-old developed a fever that she contacted the patient the web assistant and was recommended that both get checked for COVID. She denies any known positive exposure to COVID. Patient's PCP is Dr. Nicholson. - Related Data Allergies/Adverse Reactions: amoxicillin [Amoxicillin] Allergy (Severe, Verified 10/04/17 08:00) Anaphylaxis Past Medical History - General Information source: Patient - Social History Smoking Status: Former Smoker - Quit Smoking years ago Family History: Reviewed & Not Pertinent, Thyroid Disfunction - Past Medical History Cardiac Medical History: Denies: Hx Coronary Artery Disease, Hx Heart Attack, Hx Hypertension Pulmonary Medical History: Denies: Hx Asthma, Hx Bronchitis, Hx COPD, Hx Pneumonia Neurological Medical History: Denies: Hx Cerebrovascular Accident, Hx Seizures Endocrine Medical History: Denies: Hx Diabetes Mellitus Type 2 Renal/ Medical History: Denies: Hx Peritoneal Dialysis Musculoskeletal Medical History: Denies Hx Arthritis Past Surgical History: Reports: Hx Myringotomy, Hx Oral Surgery - [place] teeth Physical Exam - General General appearance: Appears well, Alert In distress: None Notes: PHYSICAL EXAMINATION: GENERAL: Well-appearing and in no acute distress. HEAD: Atraumatic, normocephalic. EYES: sclera anicteric, conjunctiva are normal. ENT: nares patent. Moist mucous membranes. NECK: Normal range of motion, supple without lymphadenopathy LUNGS: CTAB and equal. No wheezes rales or rhonchi. Resp even and unlabored. Lung sounds clear. Occasional dry cough noted. HEART: Regular rate and rhythm without murmurs ABDOMEN: Soft, nontender, normal bowel sounds, no guarding. EXTREMITIES: Normal range of motion, no pitting edema. No cyanosis. NEUROLOGICAL: Normal speech. PSYCH: Normal mood, normal affect. SKIN: Warm, Dry, normal turgor, Diagnostic Results Laboratory Results: Patient informed of negative rapid strep and negative rapid flu results .pending strep culture pending COVID testing results. Patient provided instructions regarding COVID to include: As a person under investigation for Covid 19, the [place] department of Health and Human Services, division of public health advises you to adhere to the following guidance until your test results are reported to you. If your test result is positive, you will receive additional information from your provider and your local health department at that time. Remain at home until you are cleared by the health provider or public health authorities. Keep a log of visitors to your home, notify any visitors to your home of your isolation status. If you plan to move to a new address or leave the [facility], notify the local health department in your County. Call your doctor or seek care if you have an urgent medical need. Before seeking medical care, call ahead to get instructions from the provider before arriving at the medical office clinic or hospital. Notify them that you are being tested for the virus that causes Covid 19 so that arrangements can be made, as necessary, to prevent transmission to others in the healthcare setting. Next, notify the local health department in your [facility]. If a medical emergency arises and you need to call 911, inform the first responders that you are being tested for the virus that causes Covid 19. Next, notify the local health department in your county. Patient Education/Counseling Counseling/Education: Patient presents with upper respiratory symptoms worrisome for possible Covid 19. Patient does not have emergency worring symptoms such as difficulty breathing, shortness of breath, chest pain, pressure, confusion or cyanosis. Patient appears suitable for discharge. Patient to follow up with PCP, Dr. Dr. Nicholson. Patient to go to ED for persistent or worsening symptoms. patient's vital signs are stable and patient is nontoxic in appearance. Good return precautions have been discussed with patient, patient verbalized understanding and is agreeable with discharge plan of care at this time. [facility] Discharge - Discharge Clinical Impression: COVID - 19 SCREENING Condition: Stable Disposition: Home; Selfcare
[2019-09-01 11:54] LABS: A TYPE INFLUENZA AG NEGATIVE (NEGATIVE); B INFLUENZA AG NEGATIVE (NEGATIVE)
== END ==
LOC: RDC 10:13
PROVIDERS: ATTEND Nurse Practitioner Family
DX: Z20.828 Contact with and (suspected) exposure to other viral communicable diseases (principal); R68.83 Chills (without fever); R06.02 Shortness of breath; R05 Cough; M79.10 Myalgia, unspecified site; R11.0 Nausea; R51 Headache; R19.7 Diarrhea, unspecified; Z88.1 Allergy status to other antibiotic agents; Z87.891 Personal history of nicotine dependence
CPT/HCPCS: 36415; 87070; 87880; 87635; 87804; C9803